=== PATIENT | male | born 1950 | race Caucasian/White ===

== ENCOUNTER 2019-02-01 15:34 | Inpatient (IN) | payer MEDICARE ==
[~2019-02-01] VITALS: Ht 160 cm; Wt 73.6 kg
[2019-02-01 16:15] LABS: BASO # 0.1 x10^3/uL (0.0-0.2); BASO % 1 % (0-3); EOS # 0.1 x10^3/uL (0.0-0.7); EOS % 1 % (0-3); HEMATOCRIT 46.1 % (39.0-53.0); LYMPH # 1.6 x10^3/uL (1.0-4.8); LYMPH % 22 % (24-48); MEAN CORPUSCULAR HEMOGLOBIN 29 pg (25-35); MEAN CORPUSCULAR HGB CONC 33 g/dL (31-37); MEAN CORPUSCULAR VOLUME 88 fL (79-100); MONO # 0.8 x10^3/uL (0.0-1.1); MONO % 11 % (0-9); NEUT # 4.7 x10^3uL (1.8-7.7); NEUT % 65 % (31-73); PLATELET COUNT 304 x10^3/uL (140-400); RED BLOOD COUNT 5.22 x10^6/uL (4.30-5.70); RED CELL DISTRIBUTION WIDTH 16.1 % (11.5-14.5); WHITE BLOOD COUNT 7.2 x10^3/uL (4.0-11.0)
[2019-02-01 16:39] LABS: ACETAMIN 2.2 mcg/mL (10-30); SALIC 1.6 mg/dL (2.8-20.0)
[2019-02-01 16:41] LABS: ALBUMIN 2.9 g/dL (3.4-5.0); ALBUMIN/GLOBULIN RATIO 0.6 (1.0-1.7); ALK PHOS 103 U/L (46-116); ALT (SGPT) 23 U/L (16-63); ANION GAP 10 (6-14); AST (SGOT) 31 U/L (15-37); BLOOD UREA NITROGEN 21 mg/dL (8-26); BUN/CREATININE RATIO 19 (6-20); CALCIUM 8.9 mg/dL (8.5-10.1); CARBON DIOXIDE 26 mmol/L (21-32); CHLORIDE 103 mmol/L (98-107); CREATININE 1.1 mg/dL (0.7-1.3); GLUCOSE 94 mg/dL (70-99); SODIUM 139 mmol/L (136-145); TOTAL BILIRUBIN 0.2 mg/dL (0.2-1.0); TOTAL PROTEIN 7.4 g/dL (6.4-8.2)
[2019-02-01 16:42] LABS: VAL ACID 45 mcg/mL (50-100)
--- NOTE | 2019-02-01 17:11 | EKG ---
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
--- NOTE | 2019-02-01 17:38 | PHYS DOC ---
Past History Past Medical History: COPD, Dementia Past Medical History Limited due to dementia Past Surgical History Limited due to dementia Social History Limited due to dementia Adult General Chief Complaint Chief Complaint: MEDICAL CLEARANCE HPI HPI 69-year-old male with past medical history of dementia presents from assisted for medical clearance for admission to [facility] behavioral unit. Patient is extremely poor historian given his dementia. Patient has apparently been combative. Review of Systems Review of Systems Review of systems limited secondary to patient's dementia Physical Exam Physical Exam Constitutional: Well developed, well nourished, agitated, non-toxic appearance HENT: Normocephalic, atraumatic, oropharynx moist Eyes: PERRL, EOMI, conjunctiva normal, no discharge Neck: Normal range of motion, no tenderness, supple Cardiovascular: Heart rate normal, regular rhythm Lungs & Thorax: Bilateral breath sounds clear to auscultation, no wheezing Abdomen: Soft, no tenderness Skin: Warm, dry, no erythema, no rash Back: No tenderness, no CVA tenderness Extremities: No tenderness, ROM intact, no edema Neurologic: Alert, agitated, normal motor function, normal sensory function, no focal deficits noted Psychologic: Affect agitated, judgement abnormal Current Patient Data Lab Results Laboratory Tests Test 02/01/19 15:58 White Blood Count 7.2 x10^3/uL (4.0-11.0) Red Blood Count 5.22 x10^6/uL (4.30-5.70) Hemoglobin 15.0 g/dL (13.0-17.5) Hematocrit 46.1 % (39.0-53.0) Mean Corpuscular Volume 88 fL (79-100) Mean Corpuscular Hemoglobin 29 pg (25-35) Mean Corpuscular Hemoglobin Concent 33 g/dL (31-37) Red Cell Distribution Width 16.1 % (11.5-14.5) H Platelet Count 304 x10^3/uL (140-400) Neutrophils (%) (Auto) 65 % (31-73) Lymphocytes (%) (Auto) 22 % (24-48) L Monocytes (%) (Auto) 11 % (0-9) H Eosinophils (%) (Auto) 1 % (0-3) Basophils (%) (Auto) 1 % (0-3) Neutrophils # (Auto) 4.7 x10^3uL (1.8-7.7) Lymphocytes # (Auto) 1.6 x10^3/uL (1.0-4.8) Monocytes # (Auto) 0.8 x10^3/uL (0.0-1.1) Eosinophils # (Auto) 0.1 x10^3/uL (0.0-0.7) Basophils # (Auto) 0.1 x10^3/uL (0.0-0.2) Prothrombin Time 10.3 SEC (9.4-11.4) Prothrombin Time INR 1.0 (0.9-1.1) Activated Partial Thromboplast Time 28 SEC (23-33) Sodium Level 139 mmol/L (136-145) Potassium Level 4.0 mmol/L (3.5-5.1) Chloride Level 103 mmol/L (98-107) Carbon Dioxide Level 26 mmol/L (21-32) Anion Gap 10 (6-14) Blood Urea Nitrogen 21 mg/dL (8-26) Creatinine 1.1 mg/dL (0.7-1.3) Estimated GFR (Cockcroft-Gault) 66.0 BUN/Creatinine Ratio 19 (6-20) Glucose Level 94 mg/dL (70-99) Calcium Level 8.9 mg/dL (8.5-10.1) Magnesium Level 2.0 mg/dL (1.8-2.4) Total Bilirubin 0.2 mg/dL (0.2-1.0) Aspartate Amino Transferase (AST) 31 U/L (15-37) Alanine Aminotransferase (ALT) 23 U/L (16-63) Alkaline Phosphatase 103 U/L (46-116) Creatine Kinase 459 U/L (39-308) H Creatine Kinase MB (Mass) 3.1 ng/mL (0.0-3.6) Creatine Kinase MB Relative Index 0.7 % (0-4) Troponin I Quantitative < 0.017 ng/mL (0-0.055) Total Protein 7.4 g/dL (6.4-8.2) Albumin 2.9 g/dL (3.4-5.0) L Albumin/Globulin Ratio 0.6 (1.0-1.7) L Salicylates Level 1.6 mg/dL (2.8-20.0) L Salicylate Last Dose Date Unk Salicylate Last Dose Time Unk Acetaminophen Level 2.2 mcg/mL (10-30) L Acetaminophen Last Dose Date Unk Acetaminophen Last Dose Time Unk Valproic Acid Level 45 mcg/mL (50-100) L Valproic Acid Last Dose Date 02/01/19 Valproic Acid Last Dose Time 0900 EKG EKG @1554 Sinus tachycardia at 103bpm, NO ST elevation, nonspecific t wave inversion III and aVF, QRS 74ms, QT/QTc 324/426ms Radiology/Procedures Radiology/Procedures [] Course & Med Decision Making Course & Med Decision Making Pertinent Lab studies reviewed. (See chart for details) Patient with past medical history of dementia who has been more combative and agitated recently presents from assisted for medical clearance for [facility] unit. Patient without focal abnormality on physical exam. Labs obtained and posted to chart. UA ordered but not obtained here, however patient did present with paperwork from assisted that noted normal urinalysis that was obtained this morning. Patient medically cleared for admission to [facility] behavioral unit. Continued plan for admission for further evaluation and treatment. Dragon Disclaimer Dragon Disclaimer This electronic medical record was generated, in whole or in part, using a voice recognition dictation system. Departure Departure: Impression: Primary Impression: Medical clearance for psychiatric admission Additional Impression: Dementia Disposition: 65 XFER TO PSYCH HOSP/UNIT ([facility]) Condition: STABLE Referrals: GER ANDREWS MD (PCP) Problem Qualifiers Additional Impression: Dementia Dementia type: unspecified type Dementia behavioral disturbance: with behavioral disturbance Qualified Codes: F03.91 - Unspecified dementia with behavioral disturbance NERI SINCLAIR DO Feb 01, 2019 17:38
[2019-02-01] MEDS ORDERED: ACET160O49 PO (18:05)
[2019-02-01] MEDS ORDERED: TRAM-48 PO (18:05)
[2019-02-01] MEDS ORDERED: FLUT1DIS3 IH (18:05)
[2019-02-01] MEDS ORDERED: BUPR1PAT8 TP (18:05)
[2019-02-01] MEDS ORDERED: LORA2ORA8 PO (18:05)
[2019-02-01] MEDS ORDERED: DIVA500T2 PO (18:05)
[2019-02-01 18:28] VITALS: BP 149/79
[2019-02-01] MEDS ORDERED: MAG HYDROX/AL HYDROX/SIMETH 30 ML ORAL.SUSP PO PRN (18:30)
[2019-02-01] MEDS ORDERED: METHYL SALICYLATE/MENTHOL TOPICAL OINTMENT 57GM TUBE. TP PRN (18:30)
[2019-02-01] MEDS ORDERED: MAGNESIUM HYDROXIDE 2,400 MG/30 ML ORAL.SUSP. PO PRN (18:30)
--- NOTE | 2019-02-01 18:32 | NUR ---
Admission Note with Justification for Admission to [facility] Patient admitted to [facility] for protective oversight for emergency stabilization of acute psychiatric crisis. Pt admitted from: Hospital ER Mode of arrival: EMS Accompanied By: EMS Precipitating behaviors that initiated intake and admission: COMBATIVE WITH STAFF, PEERS, FAMILY, RESISTIVE TO MEDICATION, INCREASED AGITATION Description of failure of out patient attempts at stabilization in previous setting list behavior and medication trials: Behaviors and assessment findings upon admission: PATIENT COMBATIVE AT TIME OF ASSESSMENT UNABLE TO ASSESS HEART LUNGS AND BOWEL SOUNDS AT THIS TIME Plan: Admit for protective oversight for adjustment and stabilization of medications, behaviors and mood. Intense treatment regimen including groups, medication adjustments, therapy, consistent regimen for ADL's, self care, and sleep hygiene. Daily monitoring by Inpatient staff, Psychiatry, and Medical Physician.
[2019-02-01] MEDS ORDERED: ACETAMINOPHEN 650 MG/20.3 ML SOLUTION. PO PRN (19:00)
[2019-02-01] MEDS: ALBUTEROL SULFATE 2.5 MG/3 ML NEBU. NEB SCH (20:00)
[2019-02-01] MEDS: BUDESONIDE 0.5 MG/2 ML NEBU NEB SCH (20:00)
--- NOTE | 2019-02-01 20:40 | NUR ---
Was not informed of the patient's orders.
[2019-02-01] MEDS ORDERED: NON FORMULARY ITEM (Fluticasone/Salmeterol (Advair 250-50 Diskus) 1 PUFF) IH SCH (21:00)
[2019-02-01] MEDS: LORazepam INTENSOL 2 MG/ML BOTTLE PO PRN (21:11)
[2019-02-01] MEDS: traMADol 50 MG TABLET PO PRN (21:11)
[2019-02-01] MEDS: DIVALPROEX 125 MG CAP.SPRINK PO SCH (21:11)
[2019-02-02 06:03] VITALS: BP 140/83
[2019-02-02] MEDS ORDERED: FLU VAX QS 2019-20 (36MOS+)/PF 0.5 ML SYRINGE. VAX IM ONE (09:00)
--- NOTE | 2019-02-02 10:00 | NUR ---
Patient received yearly flu vaccine in right deltoid. Patient was resistive. No adverse reactions noted at this time.
[2019-02-02] MEDS: ALBUTEROL SULFATE 2.5 MG/3 ML NEBU. NEB SCH ×3 (10:12→23:53)
[2019-02-02] MEDS: BUDESONIDE 0.5 MG/2 ML NEBU NEB SCH ×2 (10:12→23:53)
[2019-02-02] MEDS: DIVALPROEX 125 MG CAP.SPRINK PO SCH ×2 (10:23→20:49)
[2019-02-02] MEDS: LORazepam INTENSOL 2 MG/ML BOTTLE PO PRN (10:26)
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
--- NOTE | 2019-02-02 11:02 | RAD ---
CT HEAD WO CONTRAST Date: 02/02/2019 5:00 AM Clinical Indication: Comparison: None. Technique: 5 mm axial tomographic images were obtained of the head without contrast. These were viewed on brain and bone windows. One or more of the following dose reduction techniques were utilized: Automated exposure control (AEC), Adjustment of mA and/or kV according to patient size, Use of iterative reconstruction technique such as ASiR, CT scan done according to ALARA and image gently/image wisely Findings: Moderate generalized cerebral and cerebellar volume loss. Moderate nonspecific periventricular hypoattenuation, most commonly seen with chronic small vessel ischemic disease. Calcified atherosclerosis of the bilateral cavernous and paraclinoid internal carotid arteries and intracranial vertebral arteries. No intra- or extra-axial mass or fluid collection. No acute hemorrhage. The ventricles are normal in size, shape, and morphology. The francois-white matter junction is normal. The subarachnoid cisterns are patent. The visualized paranasal sinuses are normal. The visualized portions of the orbits and globes are normal. The mastoid air cells are clear. The racing secretary topogram shows no lytic lesion or fracture. Impression: No acute intracranial process. Moderate cerebral volume loss. Moderate chronic small vessel ischemic disease. Electronically signed by: Larry Scanlon MD (02/02/2019 10:59 AM) [facility]
--- NOTE | 2019-02-02 11:55 | NUR ---
Patient restless, kicking at staff when approached. Resistive with morning medications. Chair alarm applied related to patients continued attempts to get out of Broda Chair.
[2019-02-02 13:19] LABS: THYROID STIM HORMONE (TSH) 66.561 uIU/mL (0.358-3.740)
--- NOTE | 2019-02-02 13:35 | NUR ---
Nursing note: Pt in day room for morning meds and assessment. Pt was compliant with taking meds crushed in pudding. He was also cooperative with his assessment. He is agitated, but not showing any signs of aggression at this time.
[2019-02-02 16:15] VITALS: BP 134/73
[2019-02-02] MEDS ORDERED: CHOLECALCIFEROL (VITAMIN D3) 50,000 UNIT CAPSULE PO SCH (17:00)
[2019-02-02 18:10] LABS: THYROXINE 4.4 ug/dL (4.5-12.0)
--- NOTE | 2019-02-02 18:29 | NUR ---
Patient TSH 66.561, T3 4.4 and T4 144. Spoke with Dr. Lebron on the phone, will repeat labs in the morning to recheck TSH.
[2019-02-02] MEDS: hydrOXYzine HCL 10 MG TABLET PO PRN (20:48)
[2019-02-02] MEDS: CHOLECALCIFEROL (VITAMIN D3) 50,000 UNIT CAPSULE PO SCH (20:48)
[2019-02-03 00:10] LABS: HEMOGLOBIN A1C 5.8 % (4.8-5.6)
--- NOTE | 2019-02-03 00:10 | NUR ---
Pt restless in his chair in the dayroom, tearing apart a tissue container. Pt compliant with medication crushed in chocolate pudding. Pt was resistive when this nurse attempted to assess pt, push the stethoscope away. Pt is was aggressive when staff members while they assisted patient to bed, attempting to hit and scratch. Pt settle after staff got pt laying down. Bed alarm in place.
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
[2019-02-03 05:56] VITALS: BP 130/84
[2019-02-03] MEDS: ALBUTEROL SULFATE 2.5 MG/3 ML NEBU. NEB SCH ×4 (06:45→20:00)
[2019-02-03] MEDS: DIVALPROEX 125 MG CAP.SPRINK PO SCH ×2 (08:16→19:56)
--- NOTE | 2019-02-03 10:18 | NUR ---
Nursing note: Pt was in dining room for medication administration and assessment. He was compliant with taking his meds crushed and mixed with part of his breakfast. No aggression noted at this time.
[2019-02-03] MEDS: BUDESONIDE 0.5 MG/2 ML NEBU NEB SCH ×2 (10:51→20:00)
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
--- NOTE | 2019-02-03 12:41 | NUR ---
WEEKLY ACTIVITY THERAPY NOTE Date of Admission: 02/01/2019 Date of AT Assessment: TBD Goal aimed: TBD Initial goal: TBD Weekly progress towards goal: NA Group participation level: Zero Weekly highlights: arrived to unit Behaviors observed: restless in Broda wheelchair Plan: meet/assess Pt. Beneficial adaptations: potentially individual sensory stimulation activities
[2019-02-03 13:49] LABS: FREE T4 0.59 ng/dL (0.76-1.46); THYROID STIM HORMONE (TSH) 51.855 uIU/mL (0.358-3.740)
[2019-02-03 16:11] VITALS: BP 131/87
[2019-02-03 17:07] LABS: THYROXINE 4.6 ug/dL (4.5-12.0)
--- NOTE | 2019-02-03 18:52 | NUR ---
Dr Lebron is aware of patients elevated TSH. He has ordered repeat labs for 02/10.
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
[2019-02-04] MEDS: LEVOTHYROXINE 50 MCG TABLET PO SCH (06:04)
[2019-02-04] MEDS: BUDESONIDE 0.5 MG/2 ML NEBU NEB SCH (06:21)
[2019-02-04] MEDS: ALBUTEROL SULFATE 2.5 MG/3 ML NEBU. NEB SCH ×3 (06:22→16:00)
[2019-02-04 06:25] VITALS: BP 123/74
[2019-02-04] MEDS: DIVALPROEX 125 MG CAP.SPRINK PO SCH ×2 (08:33→19:51)
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
[2019-02-04 16:16] VITALS: BP 117/85
--- NOTE | 2019-02-04 17:36 | NUR ---
Patient was compliant with medications given crushed in a bite of pudding. He had difficulty eating food but drinks boost, milk and ate some iced cream. Patients daughter called, she stated that this is normal for patient. He was calm today and is disorganized.
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
[2019-02-05] MEDS: BUDESONIDE 0.5 MG/2 ML NEBU NEB SCH ×3 (01:03→21:04)
[2019-02-05] MEDS: ALBUTEROL SULFATE 2.5 MG/3 ML NEBU. NEB SCH ×5 (01:03→21:04)
[2019-02-05] MEDS: LEVOTHYROXINE 50 MCG TABLET PO SCH (05:44)
[2019-02-05 06:00] VITALS: BP 151/84
--- NOTE | 2019-02-05 06:20 | PN ---
DATE: 02/04/2019 SUBJECTIVE: The patient was seen today, met with the staff, chart reviewed. The patient continues to have problems with behaviors, hitting staff, spitting his food, refusing to eat, also restless, difficult to manage on the unit. The patient also tends to become aggressive, punching the staff and also resistive to care. OBSERVATION: VITAL SIGNS: Temperature 97.3, blood pressure 123/74, pulse 62, respirations 20, O2 sat 95%. GENERAL: Slept about 6 hours last night. The patient is not having any major physical problems. LABORATORY DATA: The patient's lab reviewed. The patient's TSH repeat still high in 60s. MEDICATIONS: Include olanzapine 5 mg daily and 2.5 mg q. 2 hours p.r.n., Depakote 500 mg b.i.d., tramadol 50 mg q. 6 hours p.r.n. ASSESSMENT: 1. Dementia, most likely Alzheimer's versus Lewy body with behavior problems. 2. Generalized anxiety disorder. 3. Impulse control disorder, unspecified. PLAN: To continue with the treatment. GASTON CAMACHO MD DR: DIXIE/kelby JOB#: [id number] / [id number]
[2019-02-05] MEDS: DIVALPROEX 125 MG CAP.SPRINK PO SCH ×2 (09:10→20:01)
--- NOTE | 2019-02-05 10:24 | NUR ---
Activity Therapy Assessment Completed based on observation and notes as Pt. is unable to respond verbally to assessment questions. Pt. uses a Broda chair and sleeps often during the day. When awake, Pt. is impulsive, often trying to stand up from his chair and grabbing at objects. Pt. is combative with anyone who stands near him, grabbing, punching and kicking most often. Pt. is oriented only to himself and does not communicate verbally. Pt. is often compliant with his medications but becomes combative shortly thereafter. Pt. has not engaged in any group activities since admission. Initial goal aimed to increase sensory stimulation: Pt. will engage in one individual Activity Therapy session before discharge.
--- NOTE | 2019-02-05 14:18 | NUR ---
Nursing note: Pt was in day room for meds. He was compliant with taking them crushed in pudding. Assessment was performed in the dining room right before lunch, which he was calm and pleasant for. He had a fish water sensory item in his hands that kept him occupied during his assessment. Pt is currently in the day room. Pt has been less combative today. Will continue to monitor.
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
[2019-02-05 16:59] VITALS: BP 148/75
--- NOTE | 2019-02-05 20:38 | NUR ---
Nursing note: Assumed care of pt in the day room. He was sleeping but was compliant with meds crushed. No agitation at this time. No s/s or c/o pain.
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
[2019-02-06 05:16] VITALS: BP 150/83
[2019-02-06] MEDS: ALBUTEROL SULFATE 2.5 MG/3 ML NEBU. NEB SCH ×4 (05:42→19:54)
[2019-02-06] MEDS: LEVOTHYROXINE 50 MCG TABLET PO SCH (05:47)
[2019-02-06] MEDS: DIVALPROEX 125 MG CAP.SPRINK PO SCH ×2 (08:02→19:42)
--- NOTE | 2019-02-06 09:20 | NUR ---
Patient was sitting in Broda chair resting when first rounding, was waiting to have breakfast. Took medications crushed in chocolate pudding, allowed for morning assessment. Patient has been less physical this morning, more compliant with cares. No agitation noted, will continue to monitor.
[2019-02-06] MEDS: BUDESONIDE 0.5 MG/2 ML NEBU NEB SCH ×2 (10:43→19:54)
[2019-02-06 15:46] VITALS: BP 142/82
--- NOTE | 2019-02-06 20:31 | NUR ---
Nursing note: Assumed care of pt in the day room. He was awake and sitting quietly. He was compliant with meds crushed in food. No s/s or c/o pain. Alert to self only. no agitation noted, no delusions or hallucinations evident.
[2019-02-07] MEDS: ALBUTEROL SULFATE 2.5 MG/3 ML NEBU. NEB SCH ×3 (05:28→15:54)
[2019-02-07] MEDS: LEVOTHYROXINE 50 MCG TABLET PO SCH (05:30)
[2019-02-07 07:15] VITALS: BP 126/67
[2019-02-07] MEDS: DIVALPROEX 125 MG CAP.SPRINK PO SCH ×2 (08:17→19:51)
[2019-02-07] MEDS: BUDESONIDE 0.5 MG/2 ML NEBU NEB SCH (11:40)
[2019-02-07 15:42] VITALS: BP 129/69
--- NOTE | 2019-02-07 16:49 | PN ---
DATE: 02/07/2019 SUBJECTIVE: The patient was seen today, met with the staff, chart reviewed. The patient continues to have problems, increased agitation, being combative with the staff and also refusing medications at times. OBSERVATION: VITAL SIGNS: Temperature 97.4, blood pressure 126/67, pulse 65, respiration 18, and O2 sat 99%. GENERAL: Slept about 7 hours the last night. The patient's appetite is fair. CURRENT MEDICATIONS: Include olanzapine 5 mg daily and 2.5 mg q. 2 hours p.r.n., Depakote 500 mg b.i.d., and tramadol 50 mg q. 6 hours p.r.n. ASSESSMENT: 1. Dementia, most likely Alzheimer's versus Lewy body disease with behavior problems. 2. Generalized anxiety disorder. 3. Impulse control disorder, unspecified. PLAN: To continue with the treatment. GASTON CAMACHO MD DR: DIXIE/kelby JOB#: [id number] / [id number]
--- NOTE | 2019-02-07 17:55 | NUR ---
Pt up in broda for meals. is restless. redirectible with some difficulty. Compliant with meds.
[2019-02-08] MEDS: BUDESONIDE 0.5 MG/2 ML NEBU NEB SCH ×2 (01:15→10:42)
[2019-02-08] MEDS: ALBUTEROL SULFATE 2.5 MG/3 ML NEBU. NEB SCH ×4 (01:15→16:52)
--- NOTE | 2019-02-08 01:23 | NUR ---
Nursing Note The patient was very disorganized and restless during his assessment and medication pass. The patient took his medication in chocolate pudding. The patient is currently sleeping in his room.
[2019-02-08 06:15] VITALS: BP 143/75
[2019-02-08] MEDS: LEVOTHYROXINE 50 MCG TABLET PO SCH (08:12)
[2019-02-08] MEDS: DIVALPROEX 125 MG CAP.SPRINK PO SCH ×2 (08:12→19:51)
[2019-02-08] MEDS: NON FORMULARY ITEM (Buprenorphine (Butrans) 1 PATCH) TP SCH (09:00)
--- NOTE | 2019-02-08 13:50 | NUR ---
Patient in the dining room for medications and assessments. He is cooperative and compliant. Disorganized. He took his medications crushed in chocolate pudding. Participated with activities, in a pleasant mood. No agitation, no s/s of pain or discomfort.
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
[2019-02-08 16:21] VITALS: BP 102/56
--- NOTE | 2019-02-08 21:52 | PDOC ---
Exam Note: Ramiro Note: Please also refer to the separate dictated note~for this date of service dictated separately.~Patient seen individually. Discussed the patient with Nursing staff reviewed the chart.~Reviewed interim history and current functioning. Reviewed vital signs,~Labs/ Radiology~and current medications noted below. Continue current treatment with the changes noted in the dictated addendum note Assessment: Vital Signs/I&O: Vital Signs Date Time Temp Pulse Resp B/P (MAP) Pulse Ox O2 Delivery O2 Flow Rate FiO2 02/08/19 20:35 95 Room Air 02/08/19 16:21 98.2 64 16 102/56 (71) I & O 02/07/19 02/07/19 02/08/19 14:59 22:59 06:59 Intake Total 960 ml 480 ml 100 ml Balance 960 ml 480 ml 100 ml Current Medications: I have reviewed the current psychotropics carefully including drug interactions. Risk benefit ratio favors no change other than as noted in my dictated progress note. Diagnosis: Problems: (1) Medical clearance for psychiatric admission (2) Dementia (3) Alzheimer's dementia (4) Malnutrition PASCUAL RUELAS MD Feb 08, 2019 21:52
--- NOTE | 2019-02-08 23:58 | NUR ---
Nursing Note The patient was located in the day room for his medication and assessment. The patient was compliant with medication in chocolate pudding. The patient is currently sleeping in his room.
[2019-02-09] MEDS: ALBUTEROL SULFATE 2.5 MG/3 ML NEBU. NEB SCH ×5 (00:15→20:00)
[2019-02-09] MEDS: BUDESONIDE 0.5 MG/2 ML NEBU NEB SCH ×3 (00:16→20:00)
[2019-02-09] MEDS: LEVOTHYROXINE 50 MCG TABLET PO SCH ×2 (06:00→06:20)
[2019-02-09 06:31] VITALS: BP 143/76
[2019-02-09] MEDS: DIVALPROEX 125 MG CAP.SPRINK PO SCH ×2 (08:31→19:45)
[2019-02-09] MEDS: CHOLECALCIFEROL (VITAMIN D3) 50,000 UNIT CAPSULE PO SCH (08:31)
[2019-02-09] MEDS: hydrOXYzine HCL 10 MG TABLET PO PRN (13:29)
[2019-02-09 15:57] VITALS: BP 125/70
--- NOTE | 2019-02-09 20:47 | NUR ---
Nursing note: Assumed care of pt in the day room. He was watching the game on tv and also getting his breathing treatment. He was compliant with meds in food but my attempt to engage him in conversation was ineffective. No c/o or s/s of pain, no agitation, hallucinations, or delusions evident at this time.
--- NOTE | 2019-02-09 21:53 | PDOC ---
Exam Note: Ramiro Note: Please also refer to the separate dictated note~for this date of service dictated separately.~Patient seen individually. Discussed the patient with Nursing staff reviewed the chart.~Reviewed interim history and current functioning. Reviewed vital signs,~Labs/ Radiology~and current medications noted below. Continue current treatment with the changes noted in the dictated addendum note Assessment: Vital Signs/I&O: Vital Signs Date Time Temp Pulse Resp B/P (MAP) Pulse Ox O2 Delivery O2 Flow Rate FiO2 02/09/19 20:15 94 Room Air 02/09/19 15:57 97.0 60 20 125/70 (88) I & O 02/08/19 02/08/19 02/09/19 15:00 23:00 07:00 Intake Total 1080 ml 240 ml 120 ml Balance 1080 ml 240 ml 120 ml Current Medications: I have reviewed the current psychotropics carefully including drug interactions. Risk benefit ratio favors no change other than as noted in my dictated progress note. Diagnosis: Problems: (1) Lewy body dementia with behavioral disturbance (2) Anxiety disorder (3) Impulse control disorder PASCUAL RUELAS MD Feb 09, 2019 21:53
--- NOTE | 2019-02-10 04:22 | PN ---
DATE: 02/08/2019 PSYCHIATRIC PROGRESS NOTE This late entry 02/08/2019 covers the elements not covered in my initial note. SUBJECTIVE: I met with the patient evening of 02/08/2019. Reviewed information from Dr. Glass, who covered for me over the past 1 week. The patient slept 7 hours previous night. He is wearing a red shirt, anxious, restless. REVIEW OF SYSTEMS: Ambulation impaired, in wheelchair. No CV, , pulmonary, eye system symptoms on review. MENTAL STATUS EXAM: Oriented to himself. Insight, judgment, recent and remote memory, attention, concentration, fund of knowledge poor, consistent with his diagnosis. IMPRESSION: Major neurocognitive disorder, Alzheimer, vascular with delusion, depression, behavioral disturbance; anxiety disorder, unspecified; impulse control disorder, unspecified. Hypothyroidism, currently uncontrolled, deferred to Dr. Lebron. PLAN: Continue current psychotropics. Depakote Sprinkles 500 b.i.d., Zyprexa p.r.n. Valproic acid level subtherapeutic at 45. May need to increase the Depakote, but I would like to see him medically stabilized with the thyroid status and then make further changes in his psychotropics. PASCUAL RUELAS MD DR: ENID/kelby JOB#: [id number] / [id number]
[2019-02-10] MEDS: ALBUTEROL SULFATE 2.5 MG/3 ML NEBU. NEB SCH ×4 (05:18→21:05)
[2019-02-10 05:41] VITALS: BP 115/70
[2019-02-10] MEDS: LEVOTHYROXINE 50 MCG TABLET PO SCH (05:52)
[2019-02-10] MEDS: DIVALPROEX 125 MG CAP.SPRINK PO SCH ×2 (09:17→20:02)
[2019-02-10 10:06] LABS: BASO # 0.1 x10^3/uL (0.0-0.2); BASO % 1 % (0-3); EOS # 0.1 x10^3/uL (0.0-0.7); EOS % 2 % (0-3); HEMATOCRIT 43.7 % (39.0-53.0); HEMOGLOBIN 14.2 g/dL (13.0-17.5); LYMPH # 0.9 x10^3/uL (1.0-4.8); LYMPH % 11 % (24-48); MEAN CORPUSCULAR HEMOGLOBIN 29 pg (25-35); MEAN CORPUSCULAR HGB CONC 33 g/dL (31-37); MEAN CORPUSCULAR VOLUME 90 fL (79-100); MONO # 0.8 x10^3/uL (0.0-1.1); MONO % 10 % (0-9); NEUT # 6.6 x10^3uL (1.8-7.7); NEUT % 77 % (31-73); PLATELET COUNT 222 x10^3/uL (140-400); RED BLOOD COUNT 4.86 x10^6/uL (4.30-5.70); RED CELL DISTRIBUTION WIDTH 17.3 % (11.5-14.5); WHITE BLOOD COUNT 8.6 x10^3/uL (4.0-11.0)
[2019-02-10] MEDS: BUDESONIDE 0.5 MG/2 ML NEBU NEB SCH ×2 (10:16→21:05)
[2019-02-10 10:26] LABS: ALBUMIN 2.6 g/dL (3.4-5.0); ALBUMIN/GLOBULIN RATIO 0.6 (1.0-1.7); CALCIUM 9.2 mg/dL (8.5-10.1); GFR 73.7; POTASSIUM 4.3 mmol/L (3.5-5.1); TOTAL BILIRUBIN 0.3 mg/dL (0.2-1.0)
--- NOTE | 2019-02-10 11:19 | NUR ---
Nursing note: Pt was in the day room this morning for his meds and assessment. He was compliant with taking his meds crushed in a bite of pudding. Pt was calm throughout his assessment. He is showing no signs of pain, agitation, or aggression at this time. He is currently in the day room watching the news.
[2019-02-10 17:00] VITALS: BP 152/66
[2019-02-10 18:07] LABS: THYROXINE 5.7 ug/dL (4.5-12.0)
--- NOTE | 2019-02-10 21:46 | PDOC ---
Exam Note: Ramiro Note: Please also refer to the separate dictated note~for this date of service dictated separately.~Patient seen individually. Discussed the patient with Nursing staff reviewed the chart.~Reviewed interim history and current functioning. Reviewed vital signs,~Labs/ Radiology~and current medications noted below. Continue current treatment with the changes noted in the dictated addendum note Assessment: Vital Signs/I&O: Vital Signs Date Time Temp Pulse Resp B/P (MAP) Pulse Ox O2 Delivery O2 Flow Rate FiO2 02/10/19 21:11 96 Room Air 02/10/19 17:00 97.6 81 16 152/66 (94) I & O 02/09/19 02/09/19 02/10/19 15:00 23:00 07:00 Intake Total 840 ml 340 ml Balance 840 ml 340 ml Labs: Laboratory Tests Test 02/10/19 07:34 02/10/19 09:56 Free Thyroxine 0.70 ng/dL (0.76-1.46) L Thyroxine (T4) 5.7 ug/dL (4.5-12.0) Total Triiodothyronine (TT3) 124 ng/dL (71-180) White Blood Count 8.6 x10^3/uL (4.0-11.0) Red Blood Count 4.86 x10^6/uL (4.30-5.70) Hemoglobin 14.2 g/dL (13.0-17.5) Hematocrit 43.7 % (39.0-53.0) Mean Corpuscular Volume 90 fL (79-100) Mean Corpuscular Hemoglobin 29 pg (25-35) Mean Corpuscular Hemoglobin Concent 33 g/dL (31-37) Red Cell Distribution Width 17.3 % (11.5-14.5) H Platelet Count 222 x10^3/uL (140-400) Neutrophils (%) (Auto) 77 % (31-73) H Lymphocytes (%) (Auto) 11 % (24-48) L Monocytes (%) (Auto) 10 % (0-9) H Eosinophils (%) (Auto) 2 % (0-3) Basophils (%) (Auto) 1 % (0-3) Neutrophils # (Auto) 6.6 x10^3uL (1.8-7.7) Lymphocytes # (Auto) 0.9 x10^3/uL (1.0-4.8) L Monocytes # (Auto) 0.8 x10^3/uL (0.0-1.1) Eosinophils # (Auto) 0.1 x10^3/uL (0.0-0.7) Basophils # (Auto) 0.1 x10^3/uL (0.0-0.2) Sodium Level 142 mmol/L (136-145) Potassium Level 4.3 mmol/L (3.5-5.1) Chloride Level 106 mmol/L (98-107) Carbon Dioxide Level 28 mmol/L (21-32) Anion Gap 8 (6-14) Blood Urea Nitrogen 25 mg/dL (8-26) Creatinine 1.0 mg/dL (0.7-1.3) Estimated GFR (Cockcroft-Gault) 73.7 BUN/Creatinine Ratio 25 (6-20) H Glucose Level 122 mg/dL (70-99) H Calcium Level 9.2 mg/dL (8.5-10.1) Total Bilirubin 0.3 mg/dL (0.2-1.0) Aspartate Amino Transferase (AST) 22 U/L (15-37) Alanine Aminotransferase (ALT) 23 U/L (16-63) Alkaline Phosphatase 75 U/L (46-116) Total Protein 7.0 g/dL (6.4-8.2) Albumin 2.6 g/dL (3.4-5.0) L Albumin/Globulin Ratio 0.6 (1.0-1.7) L Current Medications: I have reviewed the current psychotropics carefully including drug interactions. Risk benefit ratio favors no change other than as noted in my dictated progress note. Diagnosis: Problems: (1) Anxiety disorder (2) Impulse control disorder (3) Lewy body dementia with behavioral disturbance PASCUAL RUELAS MD Feb 10, 2019 21:46
--- NOTE | 2019-02-10 22:25 | NUR ---
Nursing note: Assumed care of pt in the day room. He was siting quietly and occasionally dozing. When I attempted to give him his meds he became combative, swinging at myself and the RABBLE FURNACE TENDER. He was yelling profanities. Med administered in food. Not positive pt is alert to name.
--- NOTE | 2019-02-10 23:56 | PN ---
DATE: PSYCHIATRIC PROGRESS NOTE This late entry 02/09/2019 covers elements not covered in my initial note. SUBJECTIVE: I met with the patient in the evening. The patient slept 5-1/4 hours previous night. He has been crying all day per nursing report, received Atarax and Zyprexa Zydis to help with this. REVIEW OF SYSTEMS: No CV, , pulmonary, eye, ENT system symptoms on review. Gait unsteady. Reliability poor. MENTAL STATUS EXAM: Oriented to himself. Insight, judgment, recent and remote memory, attention, concentration, fund of knowledge poor, consistent with his diagnosis mentioned in my initial note. PLAN: Start Zoloft 25 mg a day for 2 days, then 50 mg a day. Continue rest, unchanged for now. MAN Subhash RUELAS MD DR: ENID/kelby JOB#: [id number] / [id number]
[2019-02-11] MEDS: ALBUTEROL SULFATE 2.5 MG/3 ML NEBU. NEB SCH ×4 (05:04→20:18)
[2019-02-11 06:23] VITALS: BP 116/73
[2019-02-11 06:25] VITALS: BP 110/53
[2019-02-11] MEDS: LEVOTHYROXINE 50 MCG TABLET PO SCH (06:42)
[2019-02-11] MEDS: DIVALPROEX 125 MG CAP.SPRINK PO SCH ×2 (08:24→20:02)
[2019-02-11] MEDS: BUDESONIDE 0.5 MG/2 ML NEBU NEB SCH ×2 (10:05→20:18)
--- NOTE | 2019-02-11 10:49 | NUR ---
WEEKLY ACTIVITY THERAPY NOTE Date of Admission: 02/01/2019 Date of AT Assessment: 02/05/2019 Goal aimed: to increase sensory stimulation Initial goal: Pt. will engage in one individual Activity Therapy session before discharge. Weekly progress towards goal: achieved, 04/21 Group participation level: zero groups, full during 1:1 Weekly highlights: working with puzzle and lock box for sensory stimulation Behaviors observed: sleeping often, manipulating sensory tools, decreased restlessness as the week has gone on Plan: repeat goal Beneficial adaptations: supervision with sturdy sensory stimulation activities
--- NOTE | 2019-02-11 10:49 | NUR ---
WEEKLY NOTE: Pt dtr Mylene participated in tx team via telephone. Pt is eating 75% of meals and sleeping on average 7 hours. Pt is confused and does have some combative behaviors as they were attempting to give pt medications and provide cares. Pt thyroid function is elevated. At this time pt is on Depakote 500mg BID and had labs completed this morning with VPA at 45. Pt was placed on Levothyroxine for his thyroid in hopes to have that stabilized. Pt will be able to discharge within the next 7-10 days.
[2019-02-11 16:23] VITALS: BP 126/70
--- NOTE | 2019-02-11 18:30 | NUR ---
Patient has generally been disorganized, confused, and restless but cooperative and compliant during this shift. He was resistive with cares at times but allowed staff to feed him at meals. Will continue to monitor.
--- NOTE | 2019-02-11 21:10 | PDOC ---
Exam Note: Ramiro Note: Please also refer to the separate dictated note~for this date of service dictated separately.~Patient seen individually. Discussed the patient with Nursing staff reviewed the chart.~Reviewed interim history and current functioning. Reviewed vital signs,~Labs/ Radiology~and current medications noted below. Continue current treatment with the changes noted in the dictated addendum note Assessment: Vital Signs/I&O: Vital Signs Date Time Temp Pulse Resp B/P (MAP) Pulse Ox O2 Delivery O2 Flow Rate FiO2 02/11/19 20:27 Room Air 02/11/19 16:23 98.1 75 16 126/70 (88) 94 I & O 02/10/19 02/10/19 02/11/19 15:00 23:00 07:00 Intake Total 720 ml 240 ml 100 ml Balance 720 ml 240 ml 100 ml Current Medications: Meds: Current Medications Medications (Trade) Dose Ordered Sig/Mingo Route PRN Reason Start Time Stop Time Status Last Admin Dose Admin Divalproex Sodium (Depakote Sprinkles) 750 mg QHS PO 02/11/19 21:00 02/11/19 20:02 I have reviewed the current psychotropics carefully including drug interactions. Risk benefit ratio favors no change other than as noted in my dictated progress note. Diagnosis: Problems: (1) Anxiety disorder (2) Impulse control disorder (3) Lewy body dementia with behavioral disturbance (4) Medical clearance for psychiatric admission PASCUAL RUELAS MD Feb 11, 2019 21:10
--- NOTE | 2019-02-11 23:32 | NUR ---
Last evening pt sat in [facility] in day room he was calm and cooperative took meds crushed in pudding. When being put to bed he was combative with cares but then calmed and has been sleeping.
[2019-02-12] MEDS: ALBUTEROL SULFATE 2.5 MG/3 ML NEBU. NEB SCH ×3 (04:38→16:28)
[2019-02-12] MEDS: LEVOTHYROXINE 50 MCG TABLET PO SCH (05:34)
[2019-02-12 06:28] VITALS: BP 136/80
[2019-02-12] MEDS: SERTRALINE 25 MG TABLET. PO SCH (08:31)
[2019-02-12] MEDS: DIVALPROEX 125 MG CAP.SPRINK PO SCH ×2 (08:31→19:16)
[2019-02-12] MEDS: BUDESONIDE 0.5 MG/2 ML NEBU NEB SCH (10:57)
[2019-02-12 15:52] VITALS: BP 117/73
--- NOTE | 2019-02-12 18:59 | PN ---
DATE: 02/10/2019 PSYCHIATRIC PROGRESS NOTE This late entry 02/10/2019 covers elements not covered in my initial note. SUBJECTIVE: I met with the patient evening of 02/10/2019. Per LYNN Boyd, the patient slept 7-1/2 hours previous night, takes meds in pudding, calm, confused. REVIEW OF SYSTEMS: No CV, , pulmonary, eye, ENT system symptoms on review. Reliability poor. Gait unsteady, in wheelchair. MENTAL STATUS EXAM: Oriented to himself. Insight, judgment, recent and remote memory, attention, concentration, fund of knowledge poor, consistent with his diagnosis mentioned in my initial note. PLAN: No change from initial note. Adjust further as clinically indicated. May need to repeat the valproic acid level and he is quite hypothyroid, being adjusted per Dr. Lebron. MAN Subhash RUELAS MD DR: ENID/kelby JOB#: [id number] / [id number]
--- NOTE | 2019-02-12 19:35 | PN ---
DATE: 02/11/2019 PSYCHIATRIC PROGRESS NOTE This late entry 02/11/2019 covers elements not covered in my initial note. SUBJECTIVE: I met with the patient evening of 02/11/2019 and staffed at a treatment team meeting with the entire team in the morning along with the patient's daughter Mylene who attended the conference. The patient slept 5-3/4 hours. Appetite 70%, remains disorganized, combative with meds. Previous night he was swinging at the nursing staff and nursing aides. Takes his meds crushed. REVIEW OF SYSTEMS: No CV, , pulmonary, eye, ENT system symptoms on review. Reliability poor. Gait unsteady, in wheelchair. MENTAL STATUS EXAM: Oriented to himself. Insight, judgment, recent and remote memory, attention, concentration, fund of knowledge poor, consistent with his diagnosis mentioned in my initial note. PLAN: Start Zoloft 25 mg a day for mood and anxiety symptoms. Valproic acid level 45 on Depakote Sprinkles 500 b.i.d. We will increase this to 500 a.m., 750 at bedtime. Check CBC, CMP, valproic acid level in 3 days. Rest unchanged for now. PASCUAL RUELAS MD DR: ENID/kelby JOB#: [id number] / [id number]
--- NOTE | 2019-02-12 21:00 | NUR ---
Pt was in day room meds taken crushed without difficulty. He is more alert tonight and was cooperative with HS cares.
--- NOTE | 2019-02-12 21:37 | PDOC ---
Exam Note: Ramiro Note: Please also refer to the separate dictated note~for this date of service dictated separately.~Patient seen individually. Discussed the patient with Nursing staff reviewed the chart.~Reviewed interim history and current functioning. Reviewed vital signs,~Labs/ Radiology~and current medications noted below. Continue current treatment with the changes noted in the dictated addendum note Assessment: Vital Signs/I&O: Vital Signs Date Time Temp Pulse Resp B/P (MAP) Pulse Ox O2 Delivery O2 Flow Rate FiO2 02/12/19 21:20 96 Room Air 02/12/19 15:52 97.9 62 18 117/73 (88) I & O 02/11/19 02/11/19 02/12/19 15:00 23:00 07:00 Intake Total 480 ml 360 ml 240 ml Balance 480 ml 360 ml 240 ml Current Medications: Meds: Current Medications Medications (Trade) Dose Ordered Sig/Mingo Route PRN Reason Start Time Stop Time Status Last Admin Dose Admin Divalproex Sodium (Depakote Sprinkles) 500 mg DAILY PO 02/12/19 09:00 02/12/19 08:31 Sertraline HCl (Zoloft) 25 mg DAILY PO 02/12/19 09:00 02/12/19 08:31 I have reviewed the current psychotropics carefully including drug interactions. Risk benefit ratio favors no change other than as noted in my dictated progress note. Diagnosis: Problems: (1) Anxiety disorder (2) Impulse control disorder (3) Lewy body dementia with behavioral disturbance (4) Dementia (5) Medical clearance for psychiatric admission (6) Alzheimer's dementia PASCUAL RUELAS MD Feb 12, 2019 21:37
[2019-02-13] MEDS: BUDESONIDE 0.5 MG/2 ML NEBU NEB SCH ×3 (00:33→20:00)
[2019-02-13] MEDS: ALBUTEROL SULFATE 2.5 MG/3 ML NEBU. NEB SCH ×5 (00:33→20:00)
[2019-02-13] MEDS: LEVOTHYROXINE 50 MCG TABLET PO SCH (05:35)
[2019-02-13 06:19] VITALS: BP 155/89
[2019-02-13] MEDS: DIVALPROEX 125 MG CAP.SPRINK PO SCH ×2 (09:33→19:30)
[2019-02-13] MEDS: SERTRALINE 25 MG TABLET. PO SCH (09:33)
--- NOTE | 2019-02-13 11:39 | NUR ---
Pt is calm, cooperative, compliant, and confused. No agitation, no aggression, no hallucinations, no delusions. He is compliant with his medication and assessment.
[2019-02-13 16:42] VITALS: BP 120/64
--- NOTE | 2019-02-13 20:32 | NUR ---
Nursing note: Assumed care of pt in the day room. He was sitting at the table playing with busy items and continually putting them into his mouth. He was pleasant unless a peer attempted to hand picker one of the items or a staff member took one out of his mouth, then he yelled. He was resistive but meds given in food. He had no s/s or c/o pain.
--- NOTE | 2019-02-13 23:24 | PDOC ---
Exam Note: Ramiro Note: Please also refer to the separate dictated note~for this date of service dictated separately.~Patient seen individually. Discussed the patient with Nursing staff reviewed the chart.~Reviewed interim history and current functioning. Reviewed vital signs,~Labs/ Radiology~and current medications noted below. Continue current treatment with the changes noted in the dictated addendum note Assessment: Vital Signs/I&O: Vital Signs Date Time Temp Pulse Resp B/P (MAP) Pulse Ox O2 Delivery O2 Flow Rate FiO2 02/13/19 20:03 95 Room Air 02/13/19 16:42 97.9 78 20 120/64 (82) I & O 02/12/19 02/12/19 02/13/19 14:59 22:59 06:59 Intake Total 960 ml 240 ml 240 ml Balance 960 ml 240 ml 240 ml Current Medications: I have reviewed the current psychotropics carefully including drug interactions. Risk benefit ratio favors no change other than as noted in my dictated progress note. Diagnosis: Problems: (1) Anxiety disorder (2) Impulse control disorder (3) Lewy body dementia with behavioral disturbance PASCUAL RUELAS MD Feb 13, 2019 23:24
[2019-02-14] MEDS: ALBUTEROL SULFATE 2.5 MG/3 ML NEBU. NEB SCH ×4 (05:14→20:00)
[2019-02-14 05:46] VITALS: BP 122/76
[2019-02-14] MEDS: LEVOTHYROXINE 50 MCG TABLET PO SCH (05:54)
[2019-02-14 08:39] LABS: BASO # 0.1 x10^3/uL (0.0-0.2); BASO % 1 % (0-3); EOS # 0.2 x10^3/uL (0.0-0.7); EOS % 2 % (0-3); HEMATOCRIT 43.9 % (39.0-53.0); HEMOGLOBIN 14.6 g/dL (13.0-17.5); LYMPH # 1.2 x10^3/uL (1.0-4.8); LYMPH % 16 % (24-48); MEAN CORPUSCULAR HEMOGLOBIN 30 pg (25-35); MEAN CORPUSCULAR HGB CONC 33 g/dL (31-37); MEAN CORPUSCULAR VOLUME 90 fL (79-100); MONO % 12 % (0-9); NEUT # 5.5 x10^3uL (1.8-7.7); NEUT % 69 % (31-73); PLATELET COUNT 213 x10^3/uL (140-400); RED CELL DISTRIBUTION WIDTH 16.6 % (11.5-14.5)
[2019-02-14] MEDS: SERTRALINE 25 MG TABLET. PO SCH (08:57)
[2019-02-14] MEDS: DIVALPROEX 125 MG CAP.SPRINK PO SCH ×2 (08:57→19:43)
[2019-02-14 09:00] LABS: ALBUMIN 2.8 g/dL (3.4-5.0); ALBUMIN/GLOBULIN RATIO 0.6 (1.0-1.7); ALK PHOS 77 U/L (46-116); ALT (SGPT) 25 U/L (16-63); ANION GAP 10 (6-14); AST (SGOT) 21 U/L (15-37); BLOOD UREA NITROGEN 26 mg/dL (8-26); BUN/CREATININE RATIO 29 (6-20); CALCIUM 9.1 mg/dL (8.5-10.1); CARBON DIOXIDE 27 mmol/L (21-32); CHLORIDE 106 mmol/L (98-107); CREATININE 0.9 mg/dL (0.7-1.3); GFR 83.2; GLUCOSE 96 mg/dL (70-99); POTASSIUM 4.3 mmol/L (3.5-5.1); SODIUM 143 mmol/L (136-145); TOTAL BILIRUBIN 0.4 mg/dL (0.2-1.0); TOTAL PROTEIN 7.4 g/dL (6.4-8.2)
[2019-02-14 09:02] LABS: VAL ACID 82 mcg/mL (50-100)
--- NOTE | 2019-02-14 10:04 | NUR ---
Pt is calm, cooperative, compliant, and confused. He is compliant with his medication and assessment. No agitation, no aggression, no hallucinations, no delusions however he is restless at times.
[2019-02-14] MEDS: BUDESONIDE 0.5 MG/2 ML NEBU NEB SCH ×2 (10:50→20:00)
[2019-02-14 16:17] VITALS: BP 126/66
--- NOTE | 2019-02-14 21:52 | PDOC ---
Exam Note: Ramiro Note: Please also refer to the separate dictated note~for this date of service dictated separately.~Patient seen individually. Discussed the patient with Nursing staff reviewed the chart.~Reviewed interim history and current functioning. Reviewed vital signs,~Labs/ Radiology~and current medications noted below. Continue current treatment with the changes noted in the dictated addendum note Assessment: Vital Signs/I&O: Vital Signs Date Time Temp Pulse Resp B/P (MAP) Pulse Ox O2 Delivery O2 Flow Rate FiO2 02/14/19 20:20 97 Room Air 02/14/19 16:17 97.9 95 20 126/66 (86) I & O 02/13/19 02/13/19 02/14/19 15:00 23:00 07:00 Intake Total 480 ml 360 ml Balance 480 ml 360 ml Labs: Laboratory Tests Test 02/14/19 08:20 White Blood Count 8.0 x10^3/uL (4.0-11.0) Red Blood Count 4.90 x10^6/uL (4.30-5.70) Hemoglobin 14.6 g/dL (13.0-17.5) Hematocrit 43.9 % (39.0-53.0) Mean Corpuscular Volume 90 fL (79-100) Mean Corpuscular Hemoglobin 30 pg (25-35) Mean Corpuscular Hemoglobin Concent 33 g/dL (31-37) Red Cell Distribution Width 16.6 % (11.5-14.5) H Platelet Count 213 x10^3/uL (140-400) Neutrophils (%) (Auto) 69 % (31-73) Lymphocytes (%) (Auto) 16 % (24-48) L Monocytes (%) (Auto) 12 % (0-9) H Eosinophils (%) (Auto) 2 % (0-3) Basophils (%) (Auto) 1 % (0-3) Neutrophils # (Auto) 5.5 x10^3uL (1.8-7.7) Lymphocytes # (Auto) 1.2 x10^3/uL (1.0-4.8) Monocytes # (Auto) 1.0 x10^3/uL (0.0-1.1) Eosinophils # (Auto) 0.2 x10^3/uL (0.0-0.7) Basophils # (Auto) 0.1 x10^3/uL (0.0-0.2) Sodium Level 143 mmol/L (136-145) Potassium Level 4.3 mmol/L (3.5-5.1) Chloride Level 106 mmol/L (98-107) Carbon Dioxide Level 27 mmol/L (21-32) Anion Gap 10 (6-14) Blood Urea Nitrogen 26 mg/dL (8-26) Creatinine 0.9 mg/dL (0.7-1.3) Estimated GFR (Cockcroft-Gault) 83.2 BUN/Creatinine Ratio 29 (6-20) H Glucose Level 96 mg/dL (70-99) Calcium Level 9.1 mg/dL (8.5-10.1) Total Bilirubin 0.4 mg/dL (0.2-1.0) Aspartate Amino Transferase (AST) 21 U/L (15-37) Alanine Aminotransferase (ALT) 25 U/L (16-63) Alkaline Phosphatase 77 U/L (46-116) Total Protein 7.4 g/dL (6.4-8.2) Albumin 2.8 g/dL (3.4-5.0) L Albumin/Globulin Ratio 0.6 (1.0-1.7) L Valproic Acid Level 82 mcg/mL (50-100) Valproic Acid Last Dose Date 02/13/19 Valproic Acid Last Dose Time 2100 Current Medications: I have reviewed the current psychotropics carefully including drug interactions. Risk benefit ratio favors no change other than as noted in my dictated progress note. Diagnosis: Problems: (1) Anxiety disorder (2) Impulse control disorder (3) Lewy body dementia with behavioral disturbance (4) Medical clearance for psychiatric admission (5) Alzheimer's dementia (6) Dementia PASCUAL RUELAS MD Feb 14, 2019 21:52
--- NOTE | 2019-02-14 22:30 | NUR ---
Nursing note: Assumed care of pt in the day room. He was sitting at the table with a peer, sometimes interacting but minimal awareness. He took his meds crushed in food but grabbed my hands and tried to squeeze them. He was unable to understand commands. Alert to name only. He was noticeably appreciative when I covered him with a blanket.
[2019-02-15] MEDS: ALBUTEROL SULFATE 2.5 MG/3 ML NEBU. NEB SCH ×4 (04:46→23:10)
[2019-02-15 05:34] VITALS: BP 154/68
[2019-02-15] MEDS: LEVOTHYROXINE 50 MCG TABLET PO SCH (05:46)
[2019-02-15] MEDS: traMADol 50 MG TABLET PO PRN ×2 (07:01→08:38)
--- NOTE | 2019-02-15 07:15 | NUR ---
Pt was restless, disorganized, attempting to ambulate unassisted. Staff attempted to redirect him by toileting him, offering him 1:1 interaction, and television time. However pt continued to hit, attempt to ambulate unassisted, was restless and disorganized. Nurse offered PRN tramadol which pt attempted to hit out of nurses hand and he grabbed his water and smashed the cup. PRN zyprexa zydis given.
[2019-02-15] MEDS: SERTRALINE 25 MG TABLET. PO SCH (08:37)
[2019-02-15] MEDS: DIVALPROEX 125 MG CAP.SPRINK PO SCH ×2 (08:37→20:04)
[2019-02-15] MEDS: NON FORMULARY ITEM (Buprenorphine (Butrans) 1 PATCH) TP SCH (09:00)
--- NOTE | 2019-02-15 09:58 | NUR ---
No agitation, no aggression, no hallucinations, no delusions. Pt is calm, cooperative, compliant, and confused. He is compliant with his medication and assessment.
[2019-02-15] MEDS: BUDESONIDE 0.5 MG/2 ML NEBU NEB SCH ×2 (11:57→23:10)
[2019-02-15 16:05] VITALS: BP 98/62
[2019-02-15] MEDS ORDERED: OLANZapine 5 MG TABLET PO SCH (21:00)
--- NOTE | 2019-02-15 21:14 | PDOC ---
Exam Note: Ramiro Note: Please also refer to the separate dictated note~for this date of service dictated separately.~Patient seen individually. Discussed the patient with Nursing staff reviewed the chart.~Reviewed interim history and current functioning. Reviewed vital signs,~Labs/ Radiology~and current medications noted below. Continue current treatment with the changes noted in the dictated addendum note Assessment: Vital Signs/I&O: Vital Signs Date Time Temp Pulse Resp B/P (MAP) Pulse Ox O2 Delivery O2 Flow Rate FiO2 02/15/19 16:05 97.5 64 16 98/62 (74) 94 02/15/19 16:05 Room Air I & O 02/14/19 02/14/19 02/15/19 15:00 23:00 07:00 Intake Total 480 ml 240 ml 240 ml Balance 480 ml 240 ml 240 ml Current Medications: I have reviewed the current psychotropics carefully including drug interactions. Risk benefit ratio favors no change other than as noted in my dictated progress note. Diagnosis: Problems: (1) Anxiety disorder (2) Impulse control disorder (3) Lewy body dementia with behavioral disturbance (4) Alzheimer's dementia PASCUAL RUELAS MD Feb 15, 2019 21:14
--- NOTE | 2019-02-15 21:32 | PN ---
DATE: 02/13/2019 PSYCHIATRIC PROGRESS NOTE This late entry 02/13/2019 covers elements not covered in my initial note. SUBJECTIVE: I met with the patient evening of 02/13/2019. The patient slept 7 hours previous night. Overall, the patient remains confused, takes meds crushed in pudding not aggressive. REVIEW OF SYSTEMS: Ambulation impaired, in Broda chair. No CV, , pulmonary, eye, ENT system symptoms on review. Reliability poor. MENTAL STATUS EXAM: Oriented to himself. Insight, judgment, recent and remote memory, attention, concentration, fund of knowledge poor, consistent with his diagnosis mentioned in my initial note. PLAN: No change from initial note. MAN Subhash RUELAS MD DR: ENID/kelby JOB#: [id number] / [id number]
--- NOTE | 2019-02-15 21:33 | PN ---
DATE: 02/14/2019 PSYCHIATRIC PROGRESS NOTE This late entry 02/14/2019 covers elements not covered in my initial note. SUBJECTIVE: I met with the patient evening of 02/14/2019. The patient slept 8-1/2 hours previous night. Valproic acid level therapeutic at 82. Takes meds in pudding, was somewhat agitated, grabbing the hand of a nursing staff very strongly, but did redirect. REVIEW OF SYSTEMS: Ambulation impaired, in Broda chair. No CV, , pulmonary, eye, ENT system symptoms on review. Reliability poor. MENTAL STATUS EXAMINATION: Oriented to himself. Insight, judgment, recent and remote memory, attention, concentration, fund of knowledge poor, consistent with his diagnosis mentioned in my initial note. PLAN: No change from initial note. MAN Subhash RUELAS MD DR: ENID/kelby JOB#: [id number] / [id number]
--- NOTE | 2019-02-15 22:24 | NUR ---
Nursing Note Pt confused, but cooperative. Somewhat restless, in the broda chair in the day room constant movement noted. Pulling at clothing and blankets. Med and assessment compliant.
[2019-02-16 05:51] VITALS: BP 132/69
[2019-02-16] MEDS: ALBUTEROL SULFATE 2.5 MG/3 ML NEBU. NEB SCH ×4 (06:15→21:24)
[2019-02-16] MEDS: LEVOTHYROXINE 50 MCG TABLET PO SCH (06:18)
[2019-02-16] MEDS: DIVALPROEX 125 MG CAP.SPRINK PO SCH ×2 (09:19→21:01)
[2019-02-16] MEDS: OLANZapine 5 MG TABLET PO SCH (09:19)
[2019-02-16] MEDS: SERTRALINE 25 MG TABLET. PO SCH (09:19)
[2019-02-16] MEDS: CHOLECALCIFEROL (VITAMIN D3) 50,000 UNIT CAPSULE PO SCH (09:19)
[2019-02-16] MEDS: BUDESONIDE 0.5 MG/2 ML NEBU NEB SCH ×2 (10:37→21:24)
--- NOTE | 2019-02-16 13:03 | PN ---
DATE: 02/15/2019 PSYCHIATRIC PROGRESS NOTE This late entry 02/15/2019 covers elements not covered in my initial note. SUBJECTIVE: I met with the patient evening of 02/15/2019. Per LYNN Farmer, the patient slept 6 hours previous night, received Zyprexa at 7:15 due to anxiety, irritability, difficult to redirect at times. REVIEW OF SYSTEMS: Ambulation impaired, in Broda chair. No CV, , pulmonary, eye, ENT system symptoms on review. Reliability poor. MENTAL STATUS EXAM: Oriented to himself. Insight, judgment, recent and remote memory, attention, concentration, fund of knowledge poor, consistent with his diagnosis mentioned in my initial note. Valproic acid level therapeutic at 82. PLAN: Change Zyprexa Zydis 5 mg daily to regular Zyprexa 5 mg daily. Continue Depakote along with Zoloft and Zyprexa p.r.n. Adjust further as clinically indicated. MAN Subhash RUELAS MD DR: ENID/kelby JOB#: [id number] / [id number]
--- NOTE | 2019-02-16 15:21 | NUR ---
Nursing note: Pt was in the dining room this morning for his meds and assessment. He was compliant with his meds crushed in pudding. He was cooperative and sat still throughout the assessment. He has not had any behaviors today. Pt is currently in the day room.
[2019-02-16 17:14] VITALS: BP 130/65
--- NOTE | 2019-02-16 21:09 | PDOC ---
Exam Note: Ramiro Note: Please also refer to the separate dictated note~for this date of service dictated separately.~Patient seen individually. Discussed the patient with Nursing staff reviewed the chart.~Reviewed interim history and current functioning. Reviewed vital signs,~Labs/ Radiology~and current medications noted below. Continue current treatment with the changes noted in the dictated addendum note Assessment: Vital Signs/I&O: Vital Signs Date Time Temp Pulse Resp B/P (MAP) Pulse Ox O2 Delivery O2 Flow Rate FiO2 02/16/19 17:14 97.3 61 20 130/65 (86) 99 02/16/19 15:48 Room Air I & O 02/15/19 02/15/19 02/16/19 15:00 23:00 07:00 Intake Total 600 ml 600 ml Balance 600 ml 600 ml Current Medications: Meds: Current Medications Medications (Trade) Dose Ordered Sig/Mingo Route PRN Reason Start Time Stop Time Status Last Admin Dose Admin Olanzapine (ZyPREXA) 5 mg DAILY PO 02/16/19 09:00 02/16/19 09:19 I have reviewed the current psychotropics carefully including drug interactions. Risk benefit ratio favors no change other than as noted in my dictated progress note. Diagnosis: Problems: (1) Anxiety disorder (2) Impulse control disorder (3) Lewy body dementia with behavioral disturbance (4) Alzheimer's dementia (5) Malnutrition PASCUAL RUELAS MD Feb 16, 2019 21:09
--- NOTE | 2019-02-16 22:10 | NUR ---
Nursing Note Pt confused, but cooperative. Somewhat restless, in the broda chair in the day room constant movement noted. Pulling at clothing and blankets, seems less awake tonight than last night. Med and assessment compliant.
[2019-02-17 04:45] VITALS: BP 115/73
[2019-02-17] MEDS: ALBUTEROL SULFATE 2.5 MG/3 ML NEBU. NEB SCH ×3 (05:49→16:45)
[2019-02-17] MEDS: LEVOTHYROXINE 50 MCG TABLET PO SCH (06:00)
[2019-02-17] MEDS: BUDESONIDE 0.5 MG/2 ML NEBU NEB SCH (10:43)
[2019-02-17] MEDS: SERTRALINE 50 MG TABLET. PO SCH (11:12)
[2019-02-17] MEDS: DIVALPROEX 125 MG CAP.SPRINK PO SCH ×2 (11:12→20:42)
[2019-02-17] MEDS: OLANZapine 5 MG TABLET PO SCH (11:13)
[2019-02-17 15:56] VITALS: BP 125/74
--- NOTE | 2019-02-17 16:35 | NUR ---
Patient in the dining room for assessment and medication. He is calm, cooperative and compliant. Takes his medications crushed in chocolate pudding. Cooperative with feeding and cares. No agitation. No s/s of pain or agitation.
[2019-02-17] MEDS: NYSTATIN TOPICAL POWDER 15GM BOTTLE. TP SCH (20:46)
--- NOTE | 2019-02-17 21:42 | PDOC ---
Exam Note: Ramiro Note: Please also refer to the separate dictated note~for this date of service dictated separately.~Patient seen individually. Discussed the patient with Nursing staff reviewed the chart.~Reviewed interim history and current functioning. Reviewed vital signs,~Labs/ Radiology~and current medications noted below. Continue current treatment with the changes noted in the dictated addendum note Assessment: Vital Signs/I&O: Vital Signs Date Time Temp Pulse Resp B/P (MAP) Pulse Ox O2 Delivery O2 Flow Rate FiO2 02/17/19 20:45 Room Air 02/17/19 15:56 97.5 88 16 125/74 (91) 94 I & O 02/16/19 02/16/19 02/17/19 15:00 23:00 07:00 Intake Total 240 ml 240 ml 100 ml Balance 240 ml 240 ml 100 ml Current Medications: Meds: Current Medications Medications (Trade) Dose Ordered Sig/Mingo Route PRN Reason Start Time Stop Time Status Last Admin Dose Admin Sertraline HCl (Zoloft) 50 mg DAILY PO 02/17/19 09:00 02/17/19 11:12 Nystatin (Nystop) 1 akua BID TP 02/17/19 21:00 02/17/19 20:46 I have reviewed the current psychotropics carefully including drug interactions. Risk benefit ratio favors no change other than as noted in my dictated progress note. Diagnosis: Problems: (1) Anxiety disorder (2) Impulse control disorder (3) Lewy body dementia with behavioral disturbance (4) Alzheimer's dementia PASCUAL RUELAS MD Feb 17, 2019 21:42
--- NOTE | 2019-02-17 22:43 | NUR ---
Nursing Note Pt confused. Pt is in broda chair in the day room sleeping. pt was compliant with med pass. Meds were crushed in chocolate pudding.
[2019-02-18] MEDS: BUDESONIDE 0.5 MG/2 ML NEBU NEB SCH ×3 (02:29→21:00)
[2019-02-18] MEDS: ALBUTEROL SULFATE 2.5 MG/3 ML NEBU. NEB SCH ×5 (02:29→21:00)
[2019-02-18] MEDS: LEVOTHYROXINE 50 MCG TABLET PO SCH (04:54)
[2019-02-18 05:17] VITALS: BP 150/60
[2019-02-18] MEDS: OLANZapine 5 MG TABLET PO SCH (08:41)
[2019-02-18] MEDS: SERTRALINE 50 MG TABLET. PO SCH (08:41)
[2019-02-18] MEDS: DIVALPROEX 125 MG CAP.SPRINK PO SCH ×2 (08:41→20:17)
--- NOTE | 2019-02-18 08:56 | NUR ---
WEEKLY ACTIVITY THERAPY NOTE Date of Admission: 02/01/2019 Date of AT Assessment: 02/05/2019 Goal aimed: to increase sensory stimulation Initial goal: Pt. will engage in one individual Activity Therapy session before discharge. Weekly progress towards goal: on track, 0/1 Group participation level: zero Weekly highlights: Behaviors observed: restless and disorganized at times Plan: no change to goal Beneficial adaptations: supervision with sturdy sensory stimulation activities
[2019-02-18] MEDS: NYSTATIN TOPICAL POWDER 15GM BOTTLE. TP SCH ×2 (09:00→20:17)
--- NOTE | 2019-02-18 09:06 | PN ---
DATE: 02/16/2019 PSYCHIATRIC PROGRESS NOTE This late entry, 02/16, covers the elements not covered in my initial note. SUBJECTIVE: I met with the patient on the evening of 02/16. Per Deb, the patient takes his meds crushed in pudding. He slept reasonably well, remains confused. REVIEW OF SYSTEMS: Ambulation impaired, in Broda chair. No CV, , pulmonary, eye, ENT systems symptoms on review. Reliability poor. MENTAL STATUS EXAM: Oriented to himself. Insight, judgment, recent and remote memory, attention, concentration, fund of knowledge poor, consistent with his diagnosis mentioned in my initial note. PLAN: No change from initial note, but we will increase his Zoloft from 25 mg a day to 50 mg a day. Rest unchanged. MAN Subhash RUELAS MD DR: ENID/kelby JOB#: [id number] / [id number]
--- NOTE | 2019-02-18 12:08 | NUR ---
WEEKLY NOTE: Pt is eating 75% of meals and sleeping roughly 6 hours per night. Pt is improving behaviorally and taking his medications on a more regular basis. Pt is cooperative with staff more and less combative with cares. Pt does however, appear restless within his movements and needs redirection for his attempts to walk alone d/t unsteady gait/safety concerns. Pt will plan to discharge back to [facility] middle of next week.
[2019-02-18 15:40] VITALS: BP 131/69
--- NOTE | 2019-02-18 16:22 | NUR ---
Patient was mildly agitated and resistive this morning, including to being resistive to morning medications and being fed breakfast. He was restless in the Broda during the morning but more cooperative at lunch. He was mostly cooperative with cares throughout the day. Will continue to monitor.
--- NOTE | 2019-02-18 21:39 | PDOC ---
Exam Note: Ramiro Note: Please also refer to the separate dictated note~for this date of service dictated separately.~Patient seen individually. Discussed the patient with Nursing staff reviewed the chart.~Reviewed interim history and current functioning. Reviewed vital signs,~Labs/ Radiology~and current medications noted below. Continue current treatment with the changes noted in the dictated addendum note Assessment: Vital Signs/I&O: Vital Signs Date Time Temp Pulse Resp B/P (MAP) Pulse Ox O2 Delivery O2 Flow Rate FiO2 02/18/19 16:52 Room Air 02/18/19 15:40 97.4 60 16 131/69 (89) 94 I & O 02/17/19 02/17/19 02/18/19 15:00 23:00 07:00 Intake Total 960 ml 480 ml 240 ml Balance 960 ml 480 ml 240 ml Current Medications: I have reviewed the current psychotropics carefully including drug interactions. Risk benefit ratio favors no change other than as noted in my dictated progress note. Diagnosis: Problems: (1) Anxiety disorder (2) Impulse control disorder (3) Lewy body dementia with behavioral disturbance (4) Alzheimer's dementia PASCUAL RUELAS MD Feb 18, 2019 21:39
--- NOTE | 2019-02-19 00:28 | NUR ---
Patient was in day room at time of medication administration and assessments. Patient was rambling, non-sensical. Patient can be combative, but is easy to redirect. Calm, compliant and cooperative. No other notable behaviors at this time.
[2019-02-19] MEDS: LEVOTHYROXINE 50 MCG TABLET PO SCH (05:33)
[2019-02-19 05:37] VITALS: BP 154/80
[2019-02-19] MEDS: OLANZapine 5 MG TABLET PO SCH (07:47)
[2019-02-19] MEDS: DIVALPROEX 125 MG CAP.SPRINK PO SCH ×2 (07:47→20:31)
[2019-02-19] MEDS: SERTRALINE 50 MG TABLET. PO SCH (07:47)
[2019-02-19] MEDS: BUDESONIDE 0.5 MG/2 ML NEBU NEB SCH ×2 (09:20→20:00)
[2019-02-19] MEDS: NYSTATIN TOPICAL POWDER 15GM BOTTLE. TP SCH ×2 (09:20→20:31)
[2019-02-19] MEDS: ALBUTEROL SULFATE 2.5 MG/3 ML NEBU. NEB SCH ×5 (09:20→20:44)
--- NOTE | 2019-02-19 14:35 | NUR ---
Patient has been restless, disorganized, calm, and cooperative throughout this shift. He has been cooperative with meals and was mostly cooperative with his shower. Will continue to monitor.
--- NOTE | 2019-02-19 15:00 | NUR ---
SW contacted pt dtr, Mylene, to see if she needed anything; she reports that she talks to nursing daily and feels that pt is doing well. SW explained that pt for sure was doing better and the psychiatrist thought pt could leave in the middle of next week. Pt dtr was very thankful and got tearful. SW will plan to call pt dtr in the beginning of the week to confirm this.
[2019-02-19 16:04] VITALS: BP 119/62
--- NOTE | 2019-02-19 16:59 | NUR ---
Patient refused his breathing treatment. He repeatedly swatted at the nebulizer mask and then covered his head with a blanket. Will continue to monitor.
--- NOTE | 2019-02-19 21:32 | PDOC ---
Exam Note: Ramiro Note: Please also refer to the separate dictated note~for this date of service dictated separately.~Patient seen individually. Discussed the patient with Nursing staff reviewed the chart.~Reviewed interim history and current functioning. Reviewed vital signs,~Labs/ Radiology~and current medications noted below. Continue current treatment with the changes noted in the dictated addendum note Assessment: Vital Signs/I&O: Vital Signs Date Time Temp Pulse Resp B/P (MAP) Pulse Ox O2 Delivery O2 Flow Rate FiO2 02/19/19 16:04 96.7 80 18 119/62 (81) 96 02/18/19 21:00 Room Air I & O 02/18/19 02/18/19 02/19/19 14:59 22:59 06:59 Intake Total 1560 ml 360 ml 240 ml Balance 1560 ml 360 ml 240 ml Current Medications: I have reviewed the current psychotropics carefully including drug interactions. Risk benefit ratio favors no change other than as noted in my dictated progress note. Diagnosis: Problems: (1) Anxiety disorder (2) Impulse control disorder (3) Lewy body dementia with behavioral disturbance (4) Alzheimer's dementia PASCUAL RUELAS MD Feb 19, 2019 21:32
--- NOTE | 2019-02-20 01:31 | NUR ---
Last evening pt sat at table in day room and entertained his self with magazines and plastic nuts and bolts. He was generally pleasant and cooperative. Meds taken in pudding.
--- NOTE | 2019-02-20 01:49 | PN ---
DATE: 02/18/2019 This late entry 02/18/2019 covers elements not covered in my initial note. SUBJECTIVE: I met with the patient evening of 02/18/2019. Staffed a treatment team meeting with the entire team in the morning. The patient is sleeping average 6 hours. Appetite 60%, remains confused, calm, cooperative. He gets agitated if the daughter visits and her visits have been curtailed successfully. Cooperative with meds and assessment, restless. REVIEW OF SYSTEMS: Ambulation impaired, in Broda chair. No CV, , pulmonary, eye, ENT system symptoms on review. MENTAL STATUS EXAM: Oriented to himself. Insight, judgment, recent and remote memory, attention, concentration, fund of knowledge poor, consistent with his diagnosis mentioned in my initial note. PLAN: No change from initial note. MAN Subhash RUELAS MD DR: ENID/kelby JOB#: [id number] / [id number]
[2019-02-20] MEDS: LEVOTHYROXINE 50 MCG TABLET PO SCH (05:17)
[2019-02-20] MEDS: hydrOXYzine HCL 10 MG TABLET PO PRN (05:24)
--- NOTE | 2019-02-20 05:30 | NUR ---
After getting pt dressed and out to day room he was restless then became agitated and hitting staff. PRN Atarax given by syringe then placed on mattress in quiet room.
[2019-02-20] MEDS: ALBUTEROL SULFATE 2.5 MG/3 ML NEBU. NEB SCH ×4 (05:36→23:35)
[2019-02-20 06:38] VITALS: BP 103/69
--- NOTE | 2019-02-20 07:27 | PN ---
DATE: 02/17/2019 PSYCHIATRIC PROGRESS NOTE This late entry, 02/17/2019, covers elements not covered in my initial note. SUBJECTIVE: I met with the patient the evening of 02/17/2019. Per LYNN Holm, the patient slept 6-1/4 hours previous night. He remains confused, but not agitated or aggressive, more redirectable. REVIEW OF SYSTEMS: Ambulation is impaired, in Broda chair. No CV, , pulmonary, eye, ENT system symptoms on review. Reliability is poor. MENTAL STATUS EXAM: Oriented to himself. Insight, judgment, recent and remote memory, attention, concentration, fund of knowledge poor, consistent with his diagnosis mentioned in my initial note. PLAN: No change from initial note. MAN Subhash RUELAS MD DR: ENID/kelby JOB#: [id number] / [id number]
[2019-02-20] MEDS: BUDESONIDE 0.5 MG/2 ML NEBU NEB SCH ×2 (08:00→23:35)
[2019-02-20] MEDS: SERTRALINE 50 MG TABLET. PO SCH (08:21)
[2019-02-20] MEDS: NYSTATIN TOPICAL POWDER 15GM BOTTLE. TP SCH ×2 (08:22→21:00)
[2019-02-20] MEDS: DIVALPROEX 125 MG CAP.SPRINK PO SCH ×2 (08:22→21:11)
[2019-02-20] MEDS: OLANZapine 5 MG TABLET PO SCH (08:22)
--- NOTE | 2019-02-20 14:12 | NUR ---
Patient was been restless, disorganized, agitated, and combative at breakfast. HE was throwing straws, refusing to eat, and called an aide trying to help him eat 'lazy bitch'. After breakfast patient was less irritable and he was calm and cooperative at lunch. He has continued to be calm afterwards and is currently napping in his Broda. Will continue to monitor.
[2019-02-20 15:44] VITALS: BP 141/77
--- NOTE | 2019-02-20 23:19 | PDOC ---
Exam Note: Ramiro Note: Please also refer to the separate dictated note~for this date of service dictated separately.~Patient seen individually. Discussed the patient with Nursing staff reviewed the chart.~Reviewed interim history and current functioning. Reviewed vital signs,~Labs/ Radiology~and current medications noted below. Continue current treatment with the changes noted in the dictated addendum note Assessment: Vital Signs/I&O: Vital Signs Date Time Temp Pulse Resp B/P (MAP) Pulse Ox O2 Delivery O2 Flow Rate FiO2 02/20/19 16:22 93 Room Air 02/20/19 15:44 97.9 64 20 141/77 (98) I & O 02/19/19 02/19/19 02/20/19 15:00 23:00 07:00 Intake Total 840 ml 600 ml Balance 840 ml 600 ml Current Medications: I have reviewed the current psychotropics carefully including drug interactions. Risk benefit ratio favors no change other than as noted in my dictated progress note. Diagnosis: Problems: (1) Anxiety disorder (2) Impulse control disorder (3) Lewy body dementia with behavioral disturbance (4) Medical clearance for psychiatric admission (5) Alzheimer's dementia PASCUAL RUELAS MD Feb 20, 2019 23:19
--- NOTE | 2019-02-21 01:19 | NUR ---
Nsg Note: Patient was in day room at time of medication administration and assessments. Patient was falling asleep in the chair. Patient took his medications crushed in pudding. No other notable behaviors at this time.
[2019-02-21] MEDS: LEVOTHYROXINE 50 MCG TABLET PO SCH (05:39)
[2019-02-21] MEDS: ALBUTEROL SULFATE 2.5 MG/3 ML NEBU. NEB SCH ×4 (05:42→19:47)
[2019-02-21 06:00] VITALS: BP 134/65
[2019-02-21] MEDS: SERTRALINE 50 MG TABLET. PO SCH (08:18)
[2019-02-21] MEDS: DIVALPROEX 125 MG CAP.SPRINK PO SCH ×2 (08:18→20:09)
[2019-02-21] MEDS: OLANZapine 5 MG TABLET PO SCH (08:18)
[2019-02-21] MEDS: NYSTATIN TOPICAL POWDER 15GM BOTTLE. TP SCH ×2 (08:18→20:09)
[2019-02-21] MEDS: BUDESONIDE 0.5 MG/2 ML NEBU NEB SCH ×2 (11:37→19:47)
[2019-02-21] MEDS: hydrOXYzine HCL 10 MG TABLET PO PRN (11:56)
[2019-02-21 15:46] VITALS: BP 138/59
--- NOTE | 2019-02-21 17:25 | NUR ---
Patient is in the dining room for assessment and medications. He is calm, cooperative and compliant. Takes medications crushed and mixed with a small amount of chocolate pudding. Cooperative with care. Began to get more restless and somewhat agitated right before lunch. Medicated with PRN Atarax at 1200, with good effect. No agitation, no s/s of pain or discomfort.
--- NOTE | 2019-02-21 20:37 | PDOC ---
Exam Note: Ramiro Note: Please also refer to the separate dictated note~for this date of service dictated separately.~Patient seen individually. Discussed the patient with Nursing staff reviewed the chart.~Reviewed interim history and current functioning. Reviewed vital signs,~Labs/ Radiology~and current medications noted below. Continue current treatment with the changes noted in the dictated addendum note Assessment: Vital Signs/I&O: Vital Signs Date Time Temp Pulse Resp B/P (MAP) Pulse Ox O2 Delivery O2 Flow Rate FiO2 02/21/19 19:55 95 Room Air 02/21/19 15:46 97.2 74 16 138/59 (85) I & O 02/20/19 02/20/19 02/21/19 15:00 23:00 07:00 Intake Total 1280 ml 240 ml 360 ml Balance 1280 ml 240 ml 360 ml Current Medications: I have reviewed the current psychotropics carefully including drug interactions. Risk benefit ratio favors no change other than as noted in my dictated progress note. Diagnosis: Problems: (1) Anxiety disorder (2) Impulse control disorder (3) Lewy body dementia with behavioral disturbance (4) Alzheimer's dementia PASCUAL RUELAS MD Feb 21, 2019 20:37
--- NOTE | 2019-02-21 23:19 | NUR ---
Pt located in the dayroom this evening. Pt calm and drowsy, resting in his wheelchair. Compliant with crushed medications. Pt ambulated to room with assist x2. No agitation or aggression.
[2019-02-22 05:20] VITALS: BP 119/72
[2019-02-22] MEDS: ALBUTEROL SULFATE 2.5 MG/3 ML NEBU. NEB SCH ×4 (05:20→23:17)
[2019-02-22] MEDS: LEVOTHYROXINE 50 MCG TABLET PO SCH (05:45)
[2019-02-22 07:25] LABS: BASO % 1 % (0-3); EOS # 0.3 x10^3/uL (0.0-0.7); EOS % 3 % (0-3); HEMATOCRIT 44.8 % (39.0-53.0); HEMOGLOBIN 14.7 g/dL (13.0-17.5); LYMPH # 1.6 x10^3/uL (1.0-4.8); LYMPH % 21 % (24-48); MEAN CORPUSCULAR HEMOGLOBIN 30 pg (25-35); MEAN CORPUSCULAR HGB CONC 33 g/dL (31-37); MEAN CORPUSCULAR VOLUME 90 fL (79-100); MONO % 13 % (0-9); NEUT # 4.7 x10^3uL (1.8-7.7); NEUT % 62 % (31-73); PLATELET COUNT 234 x10^3/uL (140-400); RED BLOOD COUNT 4.97 x10^6/uL (4.30-5.70); RED CELL DISTRIBUTION WIDTH 17.7 % (11.5-14.5); WHITE BLOOD COUNT 7.6 x10^3/uL (4.0-11.0)
[2019-02-22 07:40] LABS: ALBUMIN 2.7 g/dL (3.4-5.0); ALBUMIN/GLOBULIN RATIO 0.6 (1.0-1.7); CALCIUM 8.7 mg/dL (8.5-10.1); CREATININE 1.1 mg/dL (0.7-1.3); POTASSIUM 4.1 mmol/L (3.5-5.1); TOTAL BILIRUBIN 0.3 mg/dL (0.2-1.0); TOTAL PROTEIN 7.3 g/dL (6.4-8.2)
[2019-02-22] MEDS: OLANZapine 5 MG TABLET PO SCH (08:18)
[2019-02-22] MEDS: SERTRALINE 50 MG TABLET. PO SCH (08:18)
[2019-02-22] MEDS: NYSTATIN TOPICAL POWDER 15GM BOTTLE. TP SCH ×2 (08:18→19:54)
[2019-02-22] MEDS: DIVALPROEX 125 MG CAP.SPRINK PO SCH ×2 (08:18→19:53)
[2019-02-22] MEDS: hydrOXYzine HCL 10 MG TABLET PO PRN ×2 (08:18→19:53)
[2019-02-22] MEDS: NON FORMULARY ITEM (Buprenorphine (Butrans) 1 PATCH) TP SCH (09:00)
[2019-02-22] MEDS: BUDESONIDE 0.5 MG/2 ML NEBU NEB SCH ×2 (11:13→23:17)
--- NOTE | 2019-02-22 12:25 | NUR ---
KATERINA contacted Reta about pt discharging on Friday back to [place]. Due to their transport schedule Reta requested that pt leave on instead and they will plan to pick pt up around 10:00. Reta did ask for updates on pt to be sent and KATERINA will send them by the end of the day.
--- NOTE | 2019-02-22 14:21 | NUR ---
Patient is in his broda chair in the dining room for assessment and medication. He is resistant to both, refusing to take his medication and swatting at staff with redirection. Resistant and combative with shower. Continued to refuse morning meds that were crushed and mixed with chocolate pudding. PRN Zyprexa Zydis given sublingually at 0900, with moderate effect. With continued attempts, patient did eventually accept his morning medications at 0945. Incontinent of urine in the day room. Brought to his room to get cleaned up and changed. Very disorganized and confused, difficult to redirect. Urinated all over the floor and became angry with redirection, attempting to pinch and scratch staff. Once he was cleaned up, dried and redressed he calmed down. Brought to dining room to eat lunch, cooperative with being fed. After lunch, took a nap in the day room in his broda chair. No further episodes of agitation at this time, no s/s of pain or discomfort.
--- NOTE | 2019-02-22 14:47 | NUR ---
[facility] Social Work Discharge Planning Form Patient Name TRANG GARCIA Admit Date: 02/01/19 DISCHARGE PLAN Discharge Destination: Discharge back to [facility] Care Assessment: N/A Level II Assessment: N/A Transportation: [facility] to pick pt up around 1500. Special Instructions/Notes: Please fax discharge orders over to pt facility fax listed below. DISCHARGE TO FACILITY Facility: [facility] Address: [address] [place] [address]; [place] [address] Contact Name: Reta DON: Contact Name: Please ask for the nurse receiving pt upon admission to give report. PCP: Dr. Nikita Urrutia
[2019-02-22 15:38] LABS: VAL ACID 82 mcg/mL (50-100)
[2019-02-22 16:24] VITALS: BP 160/73
--- NOTE | 2019-02-22 17:35 | NUR ---
Patient agitated and combative, swatting at staff. PRN Zyprexa Zydis 2.5mg given at 1730. UA ordered per Dr. Martinez, pending collection at this time.
--- NOTE | 2019-02-22 20:36 | PDOC ---
Exam Note: Ramiro Note: Please also refer to the separate dictated note~for this date of service dictated separately.~Patient seen individually. Discussed the patient with Nursing staff reviewed the chart.~Reviewed interim history and current functioning. Reviewed vital signs,~Labs/ Radiology~and current medications noted below. Continue current treatment with the changes noted in the dictated addendum note Assessment: Vital Signs/I&O: Vital Signs Date Time Temp Pulse Resp B/P (MAP) Pulse Ox O2 Delivery O2 Flow Rate FiO2 02/22/19 16:24 97.6 70 16 160/73 (102) 97 02/22/19 16:10 Room Air I & O 02/21/19 02/21/19 02/22/19 15:00 23:00 07:00 Intake Total 480 ml 340 ml Balance 480 ml 340 ml Labs: Laboratory Tests Test 02/22/19 05:00 02/22/19 07:07 Valproic Acid Level 82 mcg/mL (50-100) Valproic Acid Last Dose Date mar 09 Valproic Acid Last Dose Time 2100 White Blood Count 7.6 x10^3/uL (4.0-11.0) Red Blood Count 4.97 x10^6/uL (4.30-5.70) Hemoglobin 14.7 g/dL (13.0-17.5) Hematocrit 44.8 % (39.0-53.0) Mean Corpuscular Volume 90 fL (79-100) Mean Corpuscular Hemoglobin 30 pg (25-35) Mean Corpuscular Hemoglobin Concent 33 g/dL (31-37) Red Cell Distribution Width 17.7 % (11.5-14.5) H Platelet Count 234 x10^3/uL (140-400) Neutrophils (%) (Auto) 62 % (31-73) Lymphocytes (%) (Auto) 21 % (24-48) L Monocytes (%) (Auto) 13 % (0-9) H Eosinophils (%) (Auto) 3 % (0-3) Basophils (%) (Auto) 1 % (0-3) Neutrophils # (Auto) 4.7 x10^3uL (1.8-7.7) Lymphocytes # (Auto) 1.6 x10^3/uL (1.0-4.8) Monocytes # (Auto) 1.0 x10^3/uL (0.0-1.1) Eosinophils # (Auto) 0.3 x10^3/uL (0.0-0.7) Basophils # (Auto) 0.0 x10^3/uL (0.0-0.2) Sodium Level 142 mmol/L (136-145) Potassium Level 4.1 mmol/L (3.5-5.1) Chloride Level 106 mmol/L (98-107) Carbon Dioxide Level 26 mmol/L (21-32) Anion Gap 10 (6-14) Blood Urea Nitrogen 33 mg/dL (8-26) H Creatinine 1.1 mg/dL (0.7-1.3) Estimated GFR (Cockcroft-Gault) 66.0 BUN/Creatinine Ratio 30 (6-20) H Glucose Level 86 mg/dL (70-99) Calcium Level 8.7 mg/dL (8.5-10.1) Total Bilirubin 0.3 mg/dL (0.2-1.0) Aspartate Amino Transferase (AST) 23 U/L (15-37) Alanine Aminotransferase (ALT) 27 U/L (16-63) Alkaline Phosphatase 67 U/L (46-116) Total Protein 7.3 g/dL (6.4-8.2) Albumin 2.7 g/dL (3.4-5.0) L Albumin/Globulin Ratio 0.6 (1.0-1.7) L Current Medications: I have reviewed the current psychotropics carefully including drug interactions. Risk benefit ratio favors no change other than as noted in my dictated progress note. Diagnosis: Problems: (1) Anxiety disorder (2) Impulse control disorder (3) Lewy body dementia with behavioral disturbance (4) Alzheimer's dementia PASCUAL RUELAS MD Feb 22, 2019 20:36
--- NOTE | 2019-02-22 22:42 | PN ---
DATE: 02/19/2019 PSYCHIATRIC PROGRESS NOTE This late entry 02/19/2019 covers the elements not covered in my initial note. SUBJECTIVE: I met with the patient in the evening. The patient slept 5 hours previous night per LYNN Bennett. He had a good day, was calm, calmer in the morning, ate breakfast, compliant with medications, had a shower. REVIEW OF SYSTEMS: No CV, , pulmonary, eye, ENT system symptoms on review. Reliability poor. Gait unsteady, in Broda chair. MENTAL STATUS EXAM: Oriented to himself. Insight, judgment, recent and remote memory, attention, concentration, fund of knowledge poor, consistent with his diagnosis mentioned in my initial note. PLAN: No change from initial note. MAN Subhash RUELAS MD DR: ENID/kelby JOB#: [id number] / [id number]
--- NOTE | 2019-02-22 23:06 | PN ---
DATE: 02/20/2019 PSYCHIATRIC PROGRESS NOTE This late entry of 02/20 covers elements not covered in my initial note. SUBJECTIVE: I met with the patient on the evening of 02/20. The patient slept 6 hours the previous night. He was combative in the morning, had to be in the quiet room, difficult at breakfast, takes meds crushed, swinging at nursing staff. REVIEW OF SYSTEMS: No CV, , pulmonary, eye, ENT system symptoms on review. Reliability poor. Gait unsteady, in wheelchair Broda chair. MENTAL STATUS EXAMINATION: Oriented to himself. Insight, judgment, recent and remote memory, attention, concentration, fund of knowledge poor, consistent with his diagnosis mentioned in my initial note. PLAN: No change from initial note. MAN Subhash RUELAS MD DR: ENID/kelby JOB#: [id number] / [id number]
--- NOTE | 2019-02-22 23:08 | PN ---
DATE: 02/21/2019 PSYCHIATRIC PROGRESS NOTE This late entry of 02/21 covers elements not covered in my initial note. SUBJECTIVE: I met with the patient in the evening. The patient has been intermittently agitated, restless. REVIEW OF SYSTEMS: Ambulation impaired, in wheelchair. No CV, , pulmonary, eye, ENT system symptoms on review. Reliability poor. MENTAL STATUS EXAMINATION: Oriented to himself. Insight, judgment, recent and remote memory, attention, concentration, fund of knowledge poor; consistent with his diagnosis mentioned in my initial note. PLAN: No change from initial note. MAN Subhash RUELAS MD DR: ENID/kelby JOB#: [id number] / [id number]
--- NOTE | 2019-02-23 00:12 | NUR ---
Nursing Note Pt is confused and restless in the chair. constant movement noted. compliant with meds in pudding.
[2019-02-23] MEDS: ALBUTEROL SULFATE 2.5 MG/3 ML NEBU. NEB SCH ×4 (05:28→23:47)
[2019-02-23 05:39] VITALS: BP 139/67
[2019-02-23] MEDS: LEVOTHYROXINE 50 MCG TABLET PO SCH (05:55)
[2019-02-23 07:55] LABS: BILIRUBIN,URINE NEG (NEG); CLARITY,URINE CLOUDY; COLOR,URINE YELLOW; GLUCOSE,URINE NEG (NEG)
[2019-02-23 07:56] LABS: BACTERIA,URINE MANY /HPF (0-FEW); NITRITE,URINE NEG (NEG); RBC,URINE >40 /HPF (0-2); SQUAMOUS EPITHELIAL CELL,UR OCC /LPF; UROBILINOGEN,URINE 0.2 mg/dL (0.2 mg/dL)
[2019-02-23] MEDS: BUDESONIDE 0.5 MG/2 ML NEBU NEB SCH ×2 (08:00→23:47)
[2019-02-23] MEDS: SERTRALINE 50 MG TABLET. PO SCH (08:03)
[2019-02-23] MEDS: DIVALPROEX 125 MG CAP.SPRINK PO SCH ×2 (08:03→20:44)
[2019-02-23] MEDS: CHOLECALCIFEROL (VITAMIN D3) 50,000 UNIT CAPSULE PO SCH (08:03)
[2019-02-23] MEDS: OLANZapine 5 MG TABLET PO SCH (08:03)
[2019-02-23] MEDS: NYSTATIN TOPICAL POWDER 15GM BOTTLE. TP SCH ×2 (08:04→20:44)
--- NOTE | 2019-02-23 15:55 | NUR ---
NURSING NOTE PT WAS IN DINNING ROOM THIS AM UPON MEDICATION ADMINISTRATION. PT TAKES MEDS CRUSHED IN PUDDING, PT COMPLIANT WITH MEDS TODAY. PT SKIN IS INTACT. PT NEEDS HELP AT MEALS WITH FEEDING. PT CAN GET AGITATED EASILY AND START SWINGING AND CURSING AT STAFF. PT WAS IN DAY ROOM MOST OF THE DAY. SEEMS LIKE PT GETS BORED AND GETS AGITATED AT TIMES AND TRIES TO PUSH THE TABLE AWAY. WILL CONTINUE TO MONITOR. LYNN NATION.
[2019-02-23 16:18] VITALS: BP 120/85
--- NOTE | 2019-02-23 20:40 | PDOC ---
Exam Note: Ramiro Note: Please also refer to the separate dictated note~for this date of service dictated separately.~Patient seen individually. Discussed the patient with Nursing staff reviewed the chart.~Reviewed interim history and current functioning. Reviewed vital signs,~Labs/ Radiology~and current medications noted below. Continue current treatment with the changes noted in the dictated addendum note Assessment: Vital Signs/I&O: Vital Signs Date Time Temp Pulse Resp B/P (MAP) Pulse Ox O2 Delivery O2 Flow Rate FiO2 02/23/19 16:29 Room Air 02/23/19 16:18 97.7 56 18 120/85 (97) 94 I & O 02/22/19 02/22/19 02/23/19 15:00 23:00 07:00 Intake Total 600 ml 740 ml Balance 600 ml 740 ml Labs: Laboratory Tests Test 02/23/19 05:00 Urine Collection Type U cath Urine Color Yellow Urine Clarity Cloudy Urine pH 8.5 Urine Specific [place] 1.015 Urine Protein Trace (NEG-TRACE) Urine Glucose (UA) Neg mg/dL (NEG) Urine Ketones (Stick) Neg mg/dL (NEG) Urine Blood Large (NEG) Urine Nitrite Neg (NEG) Urine Bilirubin Neg (NEG) Urine Urobilinogen Dipstick 0.2 mg/dL (0.2 mg/dL) Urine Leukocyte Esterase Small (NEG) Urine RBC >40 /HPF (0-2) Urine WBC 11-20 /HPF (0-4) Urine Squamous Epithelial Cells Occ /LPF Urine Transitional Epithelial Cells Occ /LPF Urine Renal Epithelial Cells Occ /LPF Urine Bacteria Many /HPF (0-FEW) Current Medications: I have reviewed the current psychotropics carefully including drug interactions. Risk benefit ratio favors no change other than as noted in my dictated progress note. Diagnosis: Problems: (1) Anxiety disorder (2) Impulse control disorder (3) Lewy body dementia with behavioral disturbance (4) Alzheimer's dementia (5) Malnutrition PASCUAL RUELAS MD Feb 23, 2019 20:40
--- NOTE | 2019-02-23 21:29 | NUR ---
Nsg Note: Patient was in day room at time of medication administration and assessments. Patient was calm, compliant and cooperative. Patient has a skin tear which appears to be new on his right inner bicep. It was assessed, cleaned and steri strips and aquamfoam bandage placed on it. Techs believe it may have gotten stuck or hit on something while in Broda or while transferring. Patient is very combative with cares. No other notable behaviors at this time.
[2019-02-24] MEDS: ALBUTEROL SULFATE 2.5 MG/3 ML NEBU. NEB SCH ×4 (05:11→20:00)
[2019-02-24 05:26] VITALS: BP 143/76
[2019-02-24] MEDS: LEVOTHYROXINE 50 MCG TABLET PO SCH (05:31)
[2019-02-24] MEDS: OLANZapine 5 MG TABLET PO SCH (08:34)
[2019-02-24] MEDS: NYSTATIN TOPICAL POWDER 15GM BOTTLE. TP SCH ×2 (08:34→20:39)
[2019-02-24] MEDS: DIVALPROEX 125 MG CAP.SPRINK PO SCH ×2 (08:34→20:40)
[2019-02-24] MEDS: SERTRALINE 50 MG TABLET. PO SCH (08:34)
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
[2019-02-24] MEDS: BUDESONIDE 0.5 MG/2 ML NEBU NEB SCH ×2 (11:06→20:00)
[2019-02-24 15:55] VITALS: BP 115/61
--- NOTE | 2019-02-24 20:45 | PDOC ---
Exam Note: Ramiro Note: Please also refer to the separate dictated note~for this date of service dictated separately.~Patient seen individually. Discussed the patient with Nursing staff reviewed the chart.~Reviewed interim history and current functioning. Reviewed vital signs,~Labs/ Radiology~and current medications noted below. Continue current treatment with the changes noted in the dictated addendum note Assessment: Vital Signs/I&O: Vital Signs Date Time Temp Pulse Resp B/P (MAP) Pulse Ox O2 Delivery O2 Flow Rate FiO2 02/24/19 20:21 95 Room Air 02/24/19 15:55 98.6 92 20 115/61 (79) I & O 02/23/19 02/23/19 02/24/19 15:00 23:00 07:00 Intake Total 840 ml 240 ml 100 ml Balance 840 ml 240 ml 100 ml Current Medications: I have reviewed the current psychotropics carefully including drug interactions. Risk benefit ratio favors no change other than as noted in my dictated progress note. Diagnosis: Problems: (1) Anxiety disorder (2) Impulse control disorder (3) Lewy body dementia with behavioral disturbance (4) Alzheimer's dementia PASCUAL RUELAS MD Feb 24, 2019 20:45
[2019-02-25] MEDS ORDERED: ALBU1.25 NEB (02:02)
[2019-02-25] MEDS ORDERED: CHOL500016 PO (02:05)
[2019-02-25] MEDS ORDERED: BUDE0.5A11 IH (02:05)
[2019-02-25] MEDS ORDERED: DIVA-53 PO (02:06)
[2019-02-25] MEDS ORDERED: LEVO50TA5 PO (02:07)
[2019-02-25] MEDS ORDERED: MAG30ORA2 PO (02:08)
[2019-02-25] MEDS ORDERED: MAGN2400 PO (02:09)
[2019-02-25] MEDS ORDERED: METH99.22 TP (02:10)
[2019-02-25] MEDS ORDERED: NYST15CR TP (02:11)
[2019-02-25] MEDS ORDERED: OLAN5TAB9 PO (02:12)
[2019-02-25] MEDS ORDERED: SERT50TA PO (02:12)
[2019-02-25] MEDS ORDERED: HYDR10SY16 PO (02:13)
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
--- NOTE | 2019-02-25 02:39 | PN ---
DATE: 02/23/2019 PSYCHIATRIC PROGRESS NOTE This late entry 02/23/2019 covers elements not covered in my initial note. SUBJECTIVE: I met with the patient evening of 02/23/2019. The patient slept 7-3/4 hours previous night. He remains somewhat withdrawn, grabbing at staff at times, that is part of his confusion. Ambulation impaired, in Broda chair. REVIEW OF SYSTEMS: No CV, , pulmonary, eye system symptoms on review. RELIABILITY: Poor. MENTAL STATUS EXAM: Oriented to himself. Insight, judgment, recent and remote memory, attention, concentration, fund of knowledge poor, consistent with his diagnosis mentioned in my initial note. PLAN: No change from initial note. MAN Subhash RUELAS MD DR: ENID/kelby JOB#: [id number] / [id number]
--- NOTE | 2019-02-25 03:59 | NUR ---
Liang Note: Patient was in day room at time of medication administration and assessments. Patient was combative and spitting his medications out at staff. Patient did sleep throughout the night. Discharge prepped by JASKARAN BAILEY. No other behaviors at this time. Addendum: 02/25/19 at 0555 by ZULMA MARCELO RN Patient combative towards staff this morning. Patient still spitting any medications placed into his mouth if not holding his mouth shut.
[2019-02-25] MEDS: ALBUTEROL SULFATE 2.5 MG/3 ML NEBU. NEB SCH ×4 (05:05→20:10)
[2019-02-25] MEDS: LEVOTHYROXINE 50 MCG TABLET PO SCH (05:51)
[2019-02-25 06:04] VITALS: BP 121/69
--- NOTE | 2019-02-25 07:30 | NUR ---
Patient was combative during the previous shift and has a new UTI. MD called, discharge was cancelled. SW and patient's facility notified.
[2019-02-25] MEDS: DIVALPROEX 125 MG CAP.SPRINK PO SCH ×2 (08:09→19:43)
[2019-02-25] MEDS: OLANZapine 5 MG TABLET PO SCH (08:09)
[2019-02-25] MEDS: SERTRALINE 50 MG TABLET. PO SCH (08:09)
--- NOTE | 2019-02-25 10:13 | NUR ---
WEEKLY ACTIVITY THERAPY NOTE Date of Admission: 02/01/2019 Date of AT Assessment: 02/05/2019 Goal aimed: to increase sensory stimulation Initial goal: Pt. will engage in one individual Activity Therapy session before discharge. Weekly progress towards goal: on track, 0/1 Group participation level: zero Weekly highlights: often around day room Behaviors observed: sleeping or restless in Broda wheelchair, fidgeting with papers and blankets Plan: no change to goal Beneficial adaptations: supervision with sturdy sensory stimulation activities
[2019-02-25] MEDS: BUDESONIDE 0.5 MG/2 ML NEBU NEB SCH ×2 (11:05→20:10)
[2019-02-25] MEDS: NYSTATIN TOPICAL POWDER 15GM BOTTLE. TP SCH ×2 (11:15→19:43)
--- NOTE | 2019-02-25 15:55 | NUR ---
SW received call from pt dtr Reta, who was upset that no one told her about pt canceled discharge. SW profusely apologized and explained to pt dtr that pt had been doing well for some time; however, his behaviors increased and nursing took a urine sample, which has come back as positive. Pt will be starting an antibiotic; however, SW is not able to tell pt dtr what that is at this time, as SW does not know if the hospitalist has seen pt at this time. Pt dtr inquired about pt TSH levels and was tearful about pt having to stay for another week or so to give time for pt behaviors to decrease before returning to [facility]. SW encouraged pt dtr to call in once a day, per her normal and if anything changes, SW will be in contact with pt.
[2019-02-25 16:20] VITALS: BP 103/65
--- NOTE | 2019-02-25 17:17 | NUR ---
WEEKLY NOTE: Pt is eating roughly 50-75% of meals and sleeping on average 6 hours. Pt was to discharge today; however, due to pt combativeness and recent positive UA, pt discharge was postponed. Pt has on a couple occasions spit out medications and will need to have them better hidden within his food. Once the antibiotic is started and pt behaviors decreased, we will look at discharging pt. Potential ELOS for .
--- NOTE | 2019-02-25 18:15 | NUR ---
Patient has been restless throughout this shift, resistive with cares, and attempts at feeding him. During the meals, he continues to try to chew on blankets and towels, and can be combative with aides trying to feed him. Will continue to monitor.
--- NOTE | 2019-02-25 20:57 | PDOC ---
Exam Note: Ramiro Note: Please also refer to the separate dictated note~for this date of service dictated separately.~Patient seen individually. Discussed the patient with Nursing staff reviewed the chart.~Reviewed interim history and current functioning. Reviewed vital signs,~Labs/ Radiology~and current medications noted below. Continue current treatment with the changes noted in the dictated addendum note Assessment: Vital Signs/I&O: Vital Signs Date Time Temp Pulse Resp B/P (MAP) Pulse Ox O2 Delivery O2 Flow Rate FiO2 02/25/19 20:10 94 Room Air 02/25/19 16:20 98.0 66 18 103/65 (78) I & O 02/24/19 02/24/19 02/25/19 15:00 23:00 07:00 Intake Total 720 ml 300 ml Balance 720 ml 300 ml Current Medications: I have reviewed the current psychotropics carefully including drug interactions. Risk benefit ratio favors no change other than as noted in my dictated progress note. Diagnosis: Problems: (1) Anxiety disorder (2) Impulse control disorder (3) Lewy body dementia with behavioral disturbance (4) Medical clearance for psychiatric admission (5) Alzheimer's dementia PASCUAL RUELAS MD Feb 25, 2019 20:57
--- NOTE | 2019-02-25 21:13 | NUR ---
Nursing Note Pt is confused and restless in the chair. constant movement noted. compliant with meds in pudding.
[2019-02-26] MEDS: ALBUTEROL SULFATE 2.5 MG/3 ML NEBU. NEB SCH ×4 (04:58→23:07)
[2019-02-26] MEDS: LEVOTHYROXINE 50 MCG TABLET PO SCH (05:53)
[2019-02-26 06:05] VITALS: BP 148/49
[2019-02-26] MEDS: OLANZapine 5 MG TABLET PO SCH (08:10)
[2019-02-26] MEDS: NYSTATIN TOPICAL POWDER 15GM BOTTLE. TP SCH ×2 (08:10→20:23)
[2019-02-26] MEDS: SERTRALINE 50 MG TABLET. PO SCH (08:10)
[2019-02-26] MEDS: DIVALPROEX 125 MG CAP.SPRINK PO SCH ×2 (08:11→20:23)
[2019-02-26] MEDS: BUDESONIDE 0.5 MG/2 ML NEBU NEB SCH ×2 (10:27→23:07)
[2019-02-26 16:06] VITALS: BP 112/61
--- NOTE | 2019-02-26 18:30 | NUR ---
Patient has been restless throughout this shift, though usually cooperative with cares after some redirection. During the meals, he continues to try to chew on blankets and towels, and was less cooperative at dinner. Will continue to monitor.
--- NOTE | 2019-02-26 20:32 | PDOC ---
Exam Note: Ramiro Note: Please also refer to the separate dictated note~for this date of service dictated separately.~Patient seen individually. Discussed the patient with Nursing staff reviewed the chart.~Reviewed interim history and current functioning. Reviewed vital signs,~Labs/ Radiology~and current medications noted below. Continue current treatment with the changes noted in the dictated addendum note Assessment: Vital Signs/I&O: Vital Signs Date Time Temp Pulse Resp B/P (MAP) Pulse Ox O2 Delivery O2 Flow Rate FiO2 02/26/19 17:04 Room Air 02/26/19 16:06 97.2 72 18 112/61 (78) 95 I & O 02/25/19 02/25/19 02/26/19 15:00 23:00 07:00 Intake Total 720 ml 240 ml 120 ml Balance 720 ml 240 ml 120 ml Current Medications: I have reviewed the current psychotropics carefully including drug interactions. Risk benefit ratio favors no change other than as noted in my dictated progress note. Diagnosis: Problems: (1) Anxiety disorder (2) Impulse control disorder (3) Lewy body dementia with behavioral disturbance (4) Alzheimer's dementia PASCUAL RUELAS MD Feb 26, 2019 20:32
--- NOTE | 2019-02-26 22:41 | NUR ---
Liang Note: Patient was in the day room at time of medication administration and assessments. Patient sitting in Broda with eyes closed and mouth opening for medications crushed in pudding. Patient compliant. Sleeping in/out. No other notable behaviors at this time. Addendum: 02/27/19 at 0527 by ZULMA MARCELO RN Patient skin tear appeared to have been re-opened and had some serosanguineous drainage. Cleaned with steri strip placed on with aquafoam on top.
--- NOTE | 2019-02-27 04:24 | PN ---
DATE: 02/25/2019 PSYCHIATRIC PROGRESS NOTE This late entry of 02/25/2019 covers elements not covered in my initial note. SUBJECTIVE: I met with the patient in the evening and staffed at a treatment team meeting with the entire team in the morning. The patient is sleeping 6-7 hours, appetite is 50%, intermittently compliant with medications, confused. He does have a UTI, culture sensitivity awaited, we will defer to Dr. Lebron. REVIEW OF SYSTEMS: Ambulation impaired, in Broda chair. No CV, , pulmonary, eye, ENT system symptoms on review. Reliability poor. MENTAL STATUS EXAM: Oriented to himself. Insight, judgment, recent and remote memory, attention, concentration, fund of knowledge poor, consistent with his diagnosis mentioned in my initial note. PLAN: No change from initial note and treat the UTI once we get the sensitivity back. Rest unchanged. MAN Subhash RUELAS MD DR: ENID/kelby JOB#: [id number] / [id number]
--- NOTE | 2019-02-27 04:32 | PN ---
DATE: 02/24/2019 PSYCHIATRIC PROGRESS NOTE This late entry 02/24/2019 covers elements not covered in my initial note. SUBJECTIVE: I met with the patient evening of 02/24/2019. Per Jo Ann RN, patient slept 7 hours previous night. He remains confused, at times gets verbally abrasive making statements "God damn it." REVIEW OF SYSTEMS: No CV, , pulmonary, eye, ENT system symptoms on review. Reliability poor. Gait unsteady, in wheelchair. MENTAL STATUS EXAM: Oriented to himself. Insight, judgment, recent and remote memory, attention, concentration, fund of knowledge poor, consistent with his diagnosis mentioned in my initial note. PLAN: No change from initial note. MAN Subhash RUELAS MD DR: ENID/kelby JOB#: [id number] / [id number]
[2019-02-27 05:40] VITALS: BP 131/68
[2019-02-27] MEDS: LEVOTHYROXINE 50 MCG TABLET PO SCH (05:57)
[2019-02-27] MEDS: ALBUTEROL SULFATE 2.5 MG/3 ML NEBU. NEB SCH ×3 (06:01→17:29)
[2019-02-27] MEDS: OLANZapine 5 MG TABLET PO SCH (08:18)
[2019-02-27] MEDS: SERTRALINE 50 MG TABLET. PO SCH (08:18)
[2019-02-27] MEDS: DIVALPROEX 125 MG CAP.SPRINK PO SCH ×2 (08:19→20:20)
[2019-02-27] MEDS: NYSTATIN TOPICAL POWDER 15GM BOTTLE. TP SCH ×2 (12:06→20:21)
[2019-02-27] MEDS: BUDESONIDE 0.5 MG/2 ML NEBU NEB SCH (13:52)
[2019-02-27] MEDS: AMOXICILLIN 250 MG CAPSULE PO SCH ×2 (15:24→20:20)
[2019-02-27 15:51] VITALS: BP 110/64
--- NOTE | 2019-02-27 18:51 | NUR ---
Patient has been restless throughout this shift, though usually cooperative with cares after some redirection. During the meals, he continues to try to chew on blankets and towels, and was more combative at meals than yesterday. Will continue to monitor.
--- NOTE | 2019-02-27 23:00 | NUR ---
Pt sleeping in his broda in the dayroom. Compliant with crushed medications. Restless at times.
[2019-02-28] MEDS: BUDESONIDE 0.5 MG/2 ML NEBU NEB SCH ×2 (04:47→11:07)
[2019-02-28] MEDS: ALBUTEROL SULFATE 2.5 MG/3 ML NEBU. NEB SCH ×3 (04:47→16:19)
[2019-02-28] MEDS: LEVOTHYROXINE 50 MCG TABLET PO SCH (06:06)
[2019-02-28 06:16] VITALS: BP 100/56
[2019-02-28] MEDS: OLANZapine 5 MG TABLET PO SCH (07:59)
[2019-02-28] MEDS: AMOXICILLIN 250 MG CAPSULE PO SCH ×3 (07:59→20:17)
[2019-02-28] MEDS: DIVALPROEX 125 MG CAP.SPRINK PO SCH ×2 (07:59→20:16)
[2019-02-28] MEDS: LACTOBACILLUS RHAMNOSUS GG 1 CAPSULE. PO SCH ×2 (08:00→20:16)
[2019-02-28] MEDS: SERTRALINE 50 MG TABLET. PO SCH (08:00)
[2019-02-28] MEDS: NYSTATIN TOPICAL POWDER 15GM BOTTLE. TP SCH ×2 (08:00→20:17)
--- NOTE | 2019-02-28 12:38 | NUR ---
Patient is complaint upon medication administration. Patient is sitting quietly in dining room eating lunch. Patient does require assistance with meals. Patient is Pleasant, but mostly non verbal. Will continue to monitor.
[2019-02-28 16:17] VITALS: BP 122/90
--- NOTE | 2019-02-28 22:01 | PDOC ---
Exam Note: Ramiro Note: This is a late entry for DOS 02/27/2019. Please also refer to the separate dictated note~for this date of service dictated separately.~Patient seen individually. Discussed the patient with Nursing staff reviewed the chart.~Reviewed interim history and current functioning. Reviewed vital signs,~Labs/ Radiology~and current medications noted below. Continue current treatment with the changes noted in the dictated addendum note Assessment: Vital Signs/I&O: Vital Signs Date Time Temp Pulse Resp B/P (MAP) Pulse Ox O2 Delivery O2 Flow Rate FiO2 02/28/19 21:15 96 Room Air 02/28/19 16:17 98.4 88 20 122/90 (101) I & O 02/27/19 02/27/19 02/28/19 15:00 23:00 07:00 Intake Total 720 ml 240 ml 240 ml Balance 720 ml 240 ml 240 ml Current Medications: Meds: Current Medications Medications (Trade) Dose Ordered Sig/Mingo Route PRN Reason Start Time Stop Time Status Last Admin Dose Admin Lactobacillus Rhamnosus (Culturelle) 1 cap BID PO 02/28/19 09:00 02/28/19 20:16 I have reviewed the current psychotropics carefully including drug interactions. Risk benefit ratio favors no change other than as noted in my dictated progress note. Diagnosis: Problems: (1) Anxiety disorder (2) Impulse control disorder (3) Lewy body dementia with behavioral disturbance (4) Alzheimer's dementia PASCUAL RUELAS MD Feb 28, 2019 22:01
--- NOTE | 2019-02-28 23:43 | NUR ---
Pt located in the dayroom this evening. Pt restless and impulsive at times. At other times, pt sits calmly and fidgets with items placed in front of him at the table. Compliant with crushed medications. No combativeness or agitation with britany root.
[2019-03-01] MEDS: LEVOTHYROXINE 50 MCG TABLET PO SCH (05:40)
[2019-03-01 05:59] VITALS: BP 147/80
[2019-03-01 07:13] LABS: BASO # 0.1 x10^3/uL (0.0-0.2); BASO % 1 % (0-3); EOS # 0.3 x10^3/uL (0.0-0.7); EOS % 5 % (0-3); HEMATOCRIT 40.1 % (39.0-53.0); HEMOGLOBIN 13.2 g/dL (13.0-17.5); LYMPH # 1.4 x10^3/uL (1.0-4.8); LYMPH % 22 % (24-48); MEAN CORPUSCULAR HEMOGLOBIN 30 pg (25-35); MEAN CORPUSCULAR HGB CONC 33 g/dL (31-37); MEAN CORPUSCULAR VOLUME 91 fL (79-100); MONO % 15 % (0-9); NEUT # 3.7 x10^3uL (1.8-7.7); NEUT % 58 % (31-73); PLATELET COUNT 207 x10^3/uL (140-400); RED BLOOD COUNT 4.41 x10^6/uL (4.30-5.70); RED CELL DISTRIBUTION WIDTH 17.3 % (11.5-14.5); WHITE BLOOD COUNT 6.4 x10^3/uL (4.0-11.0)
[2019-03-01 07:22] LABS: ALBUMIN 2.3 g/dL (3.4-5.0); ALBUMIN/GLOBULIN RATIO 0.6 (1.0-1.7); CALCIUM 8.4 mg/dL (8.5-10.1); CREATININE 1.2 mg/dL (0.7-1.3); GFR 59.7; POTASSIUM 4.7 mmol/L (3.5-5.1); TOTAL BILIRUBIN 0.1 mg/dL (0.2-1.0); TOTAL PROTEIN 6.2 g/dL (6.4-8.2)
[2019-03-01] MEDS: NON FORMULARY ITEM (Buprenorphine (Butrans) 1 PATCH) TP SCH (07:56)
[2019-03-01] MEDS: AMOXICILLIN 250 MG CAPSULE PO SCH ×3 (07:56→19:35)
[2019-03-01] MEDS: LACTOBACILLUS RHAMNOSUS GG 1 CAPSULE. PO SCH ×2 (07:56→19:34)
[2019-03-01] MEDS: OLANZapine 5 MG TABLET PO SCH (07:56)
[2019-03-01] MEDS: SERTRALINE 50 MG TABLET. PO SCH (07:56)
[2019-03-01] MEDS: NYSTATIN TOPICAL POWDER 15GM BOTTLE. TP SCH ×2 (07:56→19:34)
[2019-03-01] MEDS: DIVALPROEX 125 MG CAP.SPRINK PO SCH ×2 (07:56→19:35)
[2019-03-01] MEDS: ALBUTEROL SULFATE 2.5 MG/3 ML NEBU. NEB SCH ×3 (08:00→22:59)
[2019-03-01] MEDS: BUDESONIDE 0.5 MG/2 ML NEBU NEB SCH ×2 (08:00→22:59)
[2019-03-01 16:06] VITALS: BP 132/76
--- NOTE | 2019-03-01 19:31 | NUR ---
Patient has been restless throughout this shift, though usually cooperative with cares after some redirection. During the meals, he can be labile and will refuse to eat many foods. He will drink almost anything provided to him in a cup with a lid and straw. Patient was walked to dinner, CNAs reported that patient is less restless in the heavy chairs than in the BRODA. Will continue to monitor and report to oncoming shift.
--- NOTE | 2019-03-01 20:29 | PDOC ---
Exam Note: Ramiro Note: Please also refer to the separate dictated note~for this date of service dictated separately.~Patient seen individually. Discussed the patient with Nursing staff reviewed the chart.~Reviewed interim history and current functioning. Reviewed vital signs,~Labs/ Radiology~and current medications noted below. Continue current treatment with the changes noted in the dictated addendum note Assessment: Vital Signs/I&O: Vital Signs Date Time Temp Pulse Resp B/P (MAP) Pulse Ox O2 Delivery O2 Flow Rate FiO2 03/01/19 17:51 95 Room Air 03/01/19 16:06 97.8 73 18 132/76 (94) I & O 02/28/19 02/28/19 03/01/19 14:59 22:59 06:59 Intake Total 960 ml 600 ml Balance 960 ml 600 ml Labs: Laboratory Tests Test 03/01/19 07:00 White Blood Count 6.4 x10^3/uL (4.0-11.0) Red Blood Count 4.41 x10^6/uL (4.30-5.70) Hemoglobin 13.2 g/dL (13.0-17.5) Hematocrit 40.1 % (39.0-53.0) Mean Corpuscular Volume 91 fL (79-100) Mean Corpuscular Hemoglobin 30 pg (25-35) Mean Corpuscular Hemoglobin Concent 33 g/dL (31-37) Red Cell Distribution Width 17.3 % (11.5-14.5) H Platelet Count 207 x10^3/uL (140-400) Neutrophils (%) (Auto) 58 % (31-73) Lymphocytes (%) (Auto) 22 % (24-48) L Monocytes (%) (Auto) 15 % (0-9) H Eosinophils (%) (Auto) 5 % (0-3) H Basophils (%) (Auto) 1 % (0-3) Neutrophils # (Auto) 3.7 x10^3uL (1.8-7.7) Lymphocytes # (Auto) 1.4 x10^3/uL (1.0-4.8) Monocytes # (Auto) 1.0 x10^3/uL (0.0-1.1) Eosinophils # (Auto) 0.3 x10^3/uL (0.0-0.7) Basophils # (Auto) 0.1 x10^3/uL (0.0-0.2) Sodium Level 143 mmol/L (136-145) Potassium Level 4.7 mmol/L (3.5-5.1) Chloride Level 108 mmol/L (98-107) H Carbon Dioxide Level 29 mmol/L (21-32) Anion Gap 6 (6-14) Blood Urea Nitrogen 43 mg/dL (8-26) H Creatinine 1.2 mg/dL (0.7-1.3) Estimated GFR (Cockcroft-Gault) 59.7 BUN/Creatinine Ratio 36 (6-20) H Glucose Level 93 mg/dL (70-99) Calcium Level 8.4 mg/dL (8.5-10.1) L Total Bilirubin 0.1 mg/dL (0.2-1.0) L Aspartate Amino Transferase (AST) 21 U/L (15-37) Alanine Aminotransferase (ALT) 24 U/L (16-63) Alkaline Phosphatase 58 U/L (46-116) Total Protein 6.2 g/dL (6.4-8.2) L Albumin 2.3 g/dL (3.4-5.0) L Albumin/Globulin Ratio 0.6 (1.0-1.7) L Current Medications: I have reviewed the current psychotropics carefully including drug interactions. Risk benefit ratio favors no change other than as noted in my dictated progress note. Diagnosis: Problems: (1) Anxiety disorder (2) Impulse control disorder (3) Lewy body dementia with behavioral disturbance (4) Alzheimer's dementia (5) Malnutrition PASCUAL RUELAS MD Mar 01, 2019 20:29
--- NOTE | 2019-03-01 21:18 | PN ---
DATE: 02/26/2019 PSYCHIATRIC PROGRESS NOTE This late entry 02/26/2019 covers the elements not covered in my initial note. SUBJECTIVE: I met with the patient in the evening of 02/26/2019. Per LYNN Bennett, the patient slept 6-3/4 hours previous night. He remains disorganized, confused, not aggressive. He is in a Broda chair, does seem to have a UTI, which could be worsening his restlessness and agitation. REVIEW OF SYSTEMS: Ambulation impaired. No CV, , pulmonary, eye system symptoms on review. MENTAL STATUS EXAM: Oriented to himself. Insight, judgment, recent and remote memory, attention, concentration, fund of knowledge poor, consistent with his diagnosis mentioned in my initial note. PLAN: No change from initial note. Treat the UTI once culture returns. MAN Subhash RUELAS MD DR: ENID/kelby JOB#: [id number] / [id number]
--- NOTE | 2019-03-01 22:52 | NUR ---
Nursing Note The patient was located in the day room for his medication and assessment. The patient took his medication crushed in pudding. The patient was appropriate during interactions with this nurse. The patient is currently sleeping in his room.
--- NOTE | 2019-03-02 03:53 | PN ---
DATE: 02/28/2019 PSYCHIATRIC PROGRESS NOTE This late entry 02/28/2019 covers the elements not covered in my initial note. SUBJECTIVE: I met with the patient in the evening of 02/28/2019. The patient slept 7 hours previous night. He takes his meds crushed, anxious, restless, partly due to the UTI. REVIEW OF SYSTEMS: No CV, , pulmonary, eye, ENT system symptoms on review. Reliability poor. MENTAL STATUS EXAM: Oriented to himself. Insight, judgment, recent and remote memory, attention, concentration, fund of knowledge poor, consistent with his diagnosis mentioned in my initial note. PLAN: No change from initial note. MAN Subhash RUELAS MD DR: ENID/kelby JOB#: [id number] / [id number]
--- NOTE | 2019-03-02 03:54 | PN ---
DATE: 02/28/2019 PSYCHIATRIC PROGRESS NOTE This late entry of 02/28 covers elements not covered in my initial note. SUBJECTIVE: I met with the patient on the evening of 02/28. The patient slept 6-1/4 hours the previous night. He remains fidgety, anxious, combative with cares; does have UTI, on Amoxil 500 t.i.d. REVIEW OF SYSTEMS: Ambulation impaired, in Broda chair. No CV, , pulmonary, eye, ENT system symptoms on review. Reliability poor. MENTAL STATUS EXAMINATION: Oriented to himself. Insight, judgment, recent and remote memory, attention, concentration, fund of knowledge poor; consistent with his diagnosis as mentioned in my initial note. PLAN: No change from initial note. MAN Subhash RUELAS MD DR: ENID/kelby JOB#: [id number] / [id number]
[2019-03-02] MEDS: LEVOTHYROXINE 50 MCG TABLET PO SCH (06:05)
[2019-03-02] MEDS: ALBUTEROL SULFATE 2.5 MG/3 ML NEBU. NEB SCH ×4 (06:19→20:00)
[2019-03-02 06:28] VITALS: BP 102/60
[2019-03-02] MEDS: OLANZapine 5 MG TABLET PO SCH (08:10)
[2019-03-02] MEDS: SERTRALINE 50 MG TABLET. PO SCH (08:10)
[2019-03-02] MEDS: AMOXICILLIN 250 MG CAPSULE PO SCH ×3 (08:10→20:47)
[2019-03-02] MEDS: DIVALPROEX 125 MG CAP.SPRINK PO SCH ×2 (08:10→20:47)
[2019-03-02] MEDS: CHOLECALCIFEROL (VITAMIN D3) 50,000 UNIT CAPSULE PO SCH (08:10)
[2019-03-02] MEDS: LACTOBACILLUS RHAMNOSUS GG 1 CAPSULE. PO SCH ×2 (08:10→20:47)
[2019-03-02] MEDS: NYSTATIN TOPICAL POWDER 15GM BOTTLE. TP SCH ×2 (08:11→20:47)
[2019-03-02] MEDS: BUDESONIDE 0.5 MG/2 ML NEBU NEB SCH ×2 (10:26→20:00)
[2019-03-02 15:53] VITALS: BP 139/52
--- NOTE | 2019-03-02 16:34 | NUR ---
Patient has been restless throughout this shift, though usually cooperative with cares after some redirection. Patient was walked to breakfast and his shower, CNAs report that he has been cooperative with shower and cares. Will continue to monitor and report to oncoming shift.
--- NOTE | 2019-03-02 20:53 | PDOC ---
Exam Note: Ramiro Note: Please also refer to the separate dictated note~for this date of service dictated separately.~Patient seen individually. Discussed the patient with Nursing staff reviewed the chart.~Reviewed interim history and current functioning. Reviewed vital signs,~Labs/ Radiology~and current medications noted below. Continue current treatment with the changes noted in the dictated addendum note Assessment: Vital Signs/I&O: Vital Signs Date Time Temp Pulse Resp B/P (MAP) Pulse Ox O2 Delivery O2 Flow Rate FiO2 03/02/19 20:19 95 Room Air 03/02/19 15:53 98.2 90 16 139/52 (81) I & O 03/01/19 03/01/19 03/02/19 15:00 23:00 07:00 Intake Total 1200 ml 240 ml 0 ml Balance 1200 ml 240 ml 0 ml Current Medications: I have reviewed the current psychotropics carefully including drug interactions. Risk benefit ratio favors no change other than as noted in my dictated progress note. Diagnosis: Problems: (1) Anxiety disorder (2) Lewy body dementia with behavioral disturbance (3) Impulse control disorder (4) Alzheimer's dementia PASCUAL RUELAS MD Mar 02, 2019 20:53
--- NOTE | 2019-03-03 01:22 | NUR ---
Nursing Note The patient was located in the day room for his medication and assessment. The patient took his medication crushed in pudding. The patient was appropriate during interactions with this nurse. The patient was irritable during cares.The patient is currently sleeping in his room.
[2019-03-03] MEDS: ALBUTEROL SULFATE 2.5 MG/3 ML NEBU. NEB SCH ×4 (05:18→21:30)
[2019-03-03 05:59] VITALS: BP 120/76
[2019-03-03] MEDS: LEVOTHYROXINE 50 MCG TABLET PO SCH (06:34)
[2019-03-03] MEDS: AMOXICILLIN 250 MG CAPSULE PO SCH ×3 (07:54→21:27)
[2019-03-03] MEDS: LACTOBACILLUS RHAMNOSUS GG 1 CAPSULE. PO SCH ×2 (07:55→21:27)
[2019-03-03] MEDS: OLANZapine 5 MG TABLET PO SCH (07:55)
[2019-03-03] MEDS: DIVALPROEX 125 MG CAP.SPRINK PO SCH ×2 (07:55→21:27)
[2019-03-03] MEDS: NYSTATIN TOPICAL POWDER 15GM BOTTLE. TP SCH ×2 (07:55→21:27)
[2019-03-03] MEDS: SERTRALINE 50 MG TABLET. PO SCH (07:55)
[2019-03-03] MEDS: BUDESONIDE 0.5 MG/2 ML NEBU NEB SCH ×2 (10:44→21:30)
--- NOTE | 2019-03-03 13:30 | NUR ---
Social work student spent an hour with the pt in the day room. We played with colorful nuts and bolts toys, a fidget blanket, and a medium-sized rubber ball. Pt was attentive to the objects in front of him and he would interact with the different toys at various times. When the pt appeared lost in thought, a gentle touch on the shoulder would bring his attention back and he would say, "Well, hi there, again." We talked to each other during our session, yet most of his phrases consisted of word salad. Pt also liked to place objects in his mouth and SWS would redirect pt from this behavior by offering water or an activity distraction. SWS also made sure that pt was drinking enough water since pt's lip are often dry. During the hour, pt drank from one cup of water from time to time. SWS worker noticed that pt's behavior was calm, compliant, and he was agreeable with spending some quality time together. SWS will check back with pt tomorrow.
[2019-03-03 16:11] VITALS: BP 180/85
--- NOTE | 2019-03-03 18:30 | NUR ---
Patient has been restless throughout this shift, though usually cooperative with cares after some redirection. Patient was walked to meals, he became less irritable as the day progressed. During the afternoon he sat in a weighted chair in the day room, kept busy with toy gears, blankets, and towels. Will continue to monitor and report to oncoming shift.
--- NOTE | 2019-03-03 20:18 | PN ---
DATE: 03/02/2019 PSYCHIATRIC PROGRESS NOTE. This late entry of 03/02/2019 covers the elements not covered in my initial note. SUBJECTIVE: I met with the patient in the evening of 03/02/2019. Per LYNN Bennett, the patient slept 6-1/2 hours previous night, again walked to breakfast, gets a little agitated at times, confused, but much less so than before. REVIEW OF SYSTEMS: Ambulation impaired, in Broda chair. No CV, , pulmonary, eye, ENT system symptoms on review. Reliability poor. MENTAL STATUS EXAM: Oriented to himself. Insight, judgment, recent and remote memory, attention, concentration, fund of knowledge poor, consistent with his diagnosis mentioned in my initial note. PLAN: No change from initial note. MAN Subhash RUELAS MD DR: ENID/kelby JOB#: [id number] / [id number]
--- NOTE | 2019-03-03 20:21 | PN ---
DATE: 03/01/2019 This late entry 03/01/2019 covers elements not covered in my initial note. SUBJECTIVE: I met with the patient evening of 03/01/2019. Per Donald RN, the patient slept 6-1/2 hours previous night. He walked to breakfast, cooperated with shower, but often gets agitated during cares. He remains confused. REVIEW OF SYSTEMS: Ambulation impaired, in Broda chair. No CV, , pulmonary, eye, ENT system symptoms on review. Reliability poor. MENTAL STATUS EXAM: Oriented to himself. Insight, judgment, recent and remote memory, attention, concentration, fund of knowledge poor, consistent with his diagnosis mentioned in my initial note. PLAN: No change from initial note. MAN Subhash RUELAS MD DR: ENID/kelby JOB#: [id number] / [id number]
--- NOTE | 2019-03-03 20:42 | PDOC ---
Exam Note: Ramiro Note: Please also refer to the separate dictated note~for this date of service dictated separately.~Patient seen individually. Discussed the patient with Nursing staff reviewed the chart.~Reviewed interim history and current functioning. Reviewed vital signs,~Labs/ Radiology~and current medications noted below. Continue current treatment with the changes noted in the dictated addendum note Assessment: Vital Signs/I&O: Vital Signs Date Time Temp Pulse Resp B/P (MAP) Pulse Ox O2 Delivery O2 Flow Rate FiO2 03/03/19 16:11 98.1 70 16 180/85 (116) 100 03/03/19 16:04 Room Air I & O 03/02/19 03/02/19 03/03/19 15:00 23:00 07:00 Intake Total 1800 ml 480 ml 0 ml Balance 1800 ml 480 ml 0 ml Current Medications: I have reviewed the current psychotropics carefully including drug interactions. Risk benefit ratio favors no change other than as noted in my dictated progress note. Diagnosis: Problems: (1) Anxiety disorder (2) Impulse control disorder (3) Lewy body dementia with behavioral disturbance (4) Alzheimer's dementia (5) Malnutrition PASCUAL RUELAS MD Mar 03, 2019 20:42
[2019-03-04] MEDS ORDERED: AMOX500C PO ×2 (01:22→01:24)
[2019-03-04] MEDS ORDERED: AMOX500T PO (01:23)
[2019-03-04] MEDS ORDERED: LACT1POW11 PO (01:26)
[2019-03-04] MEDS ORDERED: OLAN5TAB9 PO (01:27)
--- NOTE | 2019-03-04 03:10 | NUR ---
Last evening pt sat at a table in day room busy with items at the table. Meds were given crushed in pudding. He walked to bed with assist of 2.
[2019-03-04] MEDS: ALBUTEROL SULFATE 2.5 MG/3 ML NEBU. NEB SCH ×4 (05:00→23:15)
[2019-03-04] MEDS: BUDESONIDE 0.5 MG/2 ML NEBU NEB SCH ×2 (05:00→23:15)
[2019-03-04] MEDS: LEVOTHYROXINE 50 MCG TABLET PO SCH (05:22)
[2019-03-04 06:10] VITALS: BP 112/64
[2019-03-04 08:06] LABS: BASO # 0.1 x10^3/uL (0.0-0.2); BASO % 1 % (0-3); EOS # 0.4 x10^3/uL (0.0-0.7); EOS % 5 % (0-3); HEMATOCRIT 45.1 % (39.0-53.0); HEMOGLOBIN 14.6 g/dL (13.0-17.5); LYMPH # 1.2 x10^3/uL (1.0-4.8); LYMPH % 18 % (24-48); MEAN CORPUSCULAR HEMOGLOBIN 30 pg (25-35); MEAN CORPUSCULAR HGB CONC 32 g/dL (31-37); MEAN CORPUSCULAR VOLUME 92 fL (79-100); MONO # 0.9 x10^3/uL (0.0-1.1); MONO % 13 % (0-9); NEUT # 4.3 x10^3uL (1.8-7.7); NEUT % 63 % (31-73); PLATELET COUNT 248 x10^3/uL (140-400); RED BLOOD COUNT 4.93 x10^6/uL (4.30-5.70); RED CELL DISTRIBUTION WIDTH 17.7 % (11.5-14.5); WHITE BLOOD COUNT 6.8 x10^3/uL (4.0-11.0)
[2019-03-04] MEDS: OLANZapine 5 MG TABLET PO SCH (08:17)
[2019-03-04] MEDS: DIVALPROEX 125 MG CAP.SPRINK PO SCH ×2 (08:17→21:39)
[2019-03-04] MEDS: LACTOBACILLUS RHAMNOSUS GG 1 CAPSULE. PO SCH ×2 (08:18→21:38)
[2019-03-04] MEDS: SERTRALINE 50 MG TABLET. PO SCH (08:18)
[2019-03-04] MEDS: AMOXICILLIN 250 MG CAPSULE PO SCH ×3 (08:18→21:39)
[2019-03-04] MEDS: NYSTATIN TOPICAL POWDER 15GM BOTTLE. TP SCH ×2 (08:18→21:39)
[2019-03-04 08:21] LABS: ALBUMIN 2.6 g/dL (3.4-5.0); ALBUMIN/GLOBULIN RATIO 0.6 (1.0-1.7); CALCIUM 8.8 mg/dL (8.5-10.1); GFR 73.7; POTASSIUM 4.6 mmol/L (3.5-5.1); TOTAL BILIRUBIN 0.2 mg/dL (0.2-1.0)
--- NOTE | 2019-03-04 10:34 | NUR ---
WEEKLY ACTIVITY THERAPY NOTE Date of Admission: 02/01/2019 Date of AT Assessment: 02/05/2019 Goal aimed: to increase sensory stimulation Initial goal: Pt. will engage in one individual Activity Therapy session before discharge. Weekly progress towards goal: on track Group participation level: zero Weekly highlights: Behaviors observed: tearful and restless during 's day service, sleeping often, fidgeting often with random materials Plan: no change to goal Beneficial adaptations: supervision with sturdy sensory stimulation activities
--- NOTE | 2019-03-04 11:08 | NUR ---
Patient in his broda in the dining room for assessments and medications. Patient was restless with morning assessments, but cooperative after some redirection. Patient was compliant with medications crushed in one bite. Will continue to monitor and report to oncoming shift.
--- NOTE | 2019-03-04 13:46 | NUR ---
KATERINA contacted pt dtr, Mylene, to let her know that pt would be leaving on Friday. The facility could not do today and actually set up transport for tomorrow at 10:00. Mylene is very excited for this and hopes that it does not change again as she has not been able to see pt since his admission here. KATERINA encourged Myelne that if she needed anything else to please let SW know.
--- NOTE | 2019-03-04 13:53 | NUR ---
[facility] Social Work Discharge Planning Form Patient Name TRANG GARCIA Admit Date: 02/01/19 DISCHARGE PLAN Discharge Destination: Discharge back to [facility] Care Assessment: N/A Level II Assessment: N/A Transportation: [facility] to pick pt up around 10:00 AM Special Instructions/Notes: Please fax discharge orders over to pt facility fax listed below. DISCHARGE TO FACILITY Facility: [facility] Address: [address] [place] [address]; [place] [address] Contact Name: Reta DON: Contact Name: Please ask for the nurse receiving pt upon admission to give report. PCP: Dr. Nikita Urrutia
[2019-03-04 16:46] VITALS: BP 166/79
--- NOTE | 2019-03-04 20:42 | PDOC ---
Exam Note: Ramiro Note: Please also refer to the separate dictated note~for this date of service dictated separately.~Patient seen individually. Discussed the patient with Nursing staff reviewed the chart.~Reviewed interim history and current functioning. Reviewed vital signs,~Labs/ Radiology~and current medications noted below. Continue current treatment with the changes noted in the dictated addendum note Assessment: Vital Signs/I&O: Vital Signs Date Time Temp Pulse Resp B/P (MAP) Pulse Ox O2 Delivery O2 Flow Rate FiO2 03/04/19 17:03 Room Air 03/04/19 16:46 97.8 84 18 166/79 (108) 97 I & O 03/03/19 03/03/19 03/04/19 15:00 23:00 07:00 Intake Total 840 ml 600 ml 240 ml Balance 840 ml 600 ml 240 ml Labs: Laboratory Tests Test 03/04/19 07:50 White Blood Count 6.8 x10^3/uL (4.0-11.0) Red Blood Count 4.93 x10^6/uL (4.30-5.70) Hemoglobin 14.6 g/dL (13.0-17.5) Hematocrit 45.1 % (39.0-53.0) Mean Corpuscular Volume 92 fL (79-100) Mean Corpuscular Hemoglobin 30 pg (25-35) Mean Corpuscular Hemoglobin Concent 32 g/dL (31-37) Red Cell Distribution Width 17.7 % (11.5-14.5) H Platelet Count 248 x10^3/uL (140-400) Neutrophils (%) (Auto) 63 % (31-73) Lymphocytes (%) (Auto) 18 % (24-48) L Monocytes (%) (Auto) 13 % (0-9) H Eosinophils (%) (Auto) 5 % (0-3) H Basophils (%) (Auto) 1 % (0-3) Neutrophils # (Auto) 4.3 x10^3uL (1.8-7.7) Lymphocytes # (Auto) 1.2 x10^3/uL (1.0-4.8) Monocytes # (Auto) 0.9 x10^3/uL (0.0-1.1) Eosinophils # (Auto) 0.4 x10^3/uL (0.0-0.7) Basophils # (Auto) 0.1 x10^3/uL (0.0-0.2) Sodium Level 144 mmol/L (136-145) Potassium Level 4.6 mmol/L (3.5-5.1) Chloride Level 106 mmol/L (98-107) Carbon Dioxide Level 29 mmol/L (21-32) Anion Gap 9 (6-14) Blood Urea Nitrogen 32 mg/dL (8-26) H Creatinine 1.0 mg/dL (0.7-1.3) Estimated GFR (Cockcroft-Gault) 73.7 BUN/Creatinine Ratio 32 (6-20) H Glucose Level 91 mg/dL (70-99) Calcium Level 8.8 mg/dL (8.5-10.1) Total Bilirubin 0.2 mg/dL (0.2-1.0) Aspartate Amino Transferase (AST) 29 U/L (15-37) Alanine Aminotransferase (ALT) 33 U/L (16-63) Alkaline Phosphatase 66 U/L (46-116) Total Protein 7.0 g/dL (6.4-8.2) Albumin 2.6 g/dL (3.4-5.0) L Albumin/Globulin Ratio 0.6 (1.0-1.7) L Current Medications: I have reviewed the current psychotropics carefully including drug interactions. Risk benefit ratio favors no change other than as noted in my dictated progress note. Diagnosis: Problems: (1) Anxiety disorder (2) Impulse control disorder (3) Lewy body dementia with behavioral disturbance (4) Medical clearance for psychiatric admission (5) Alzheimer's dementia (6) Malnutrition PASCUAL RUELAS MD Mar 04, 2019 20:42
[2019-03-05] MEDS: LEVOTHYROXINE 50 MCG TABLET PO SCH (05:49)
[2019-03-05] MEDS: ALBUTEROL SULFATE 2.5 MG/3 ML NEBU. NEB SCH (06:13)
[2019-03-05 06:41] VITALS: BP 128/64
[2019-03-05] MEDS: LACTOBACILLUS RHAMNOSUS GG 1 CAPSULE. PO SCH (08:42)
[2019-03-05] MEDS: AMOXICILLIN 250 MG CAPSULE PO SCH (08:42)
[2019-03-05] MEDS: SERTRALINE 50 MG TABLET. PO SCH (08:43)
[2019-03-05] MEDS: NYSTATIN TOPICAL POWDER 15GM BOTTLE. TP SCH (08:43)
[2019-03-05] MEDS: OLANZapine 5 MG TABLET PO SCH (08:43)
[2019-03-05] MEDS: DIVALPROEX 125 MG CAP.SPRINK PO SCH (08:43)
--- NOTE | 2019-03-05 09:45 | NUR ---
Patient was in the dining room during morning medication pass. Took medications crushed in pudding, allowed for morning assessment. No agitation noted at this time. Will continue to monitor.
--- NOTE | 2019-03-05 10:23 | NUR ---
Transition Record was faxed to follow-up provider with the following elements: Reason for admission, procedures, tests, principal diagnosis, pending studies, patient instructions, 11/11 contact information for unit, phone number to obtain pending test results, plan for follow-up care, physician follow-up, advanced directive information, and medication list with dose, duration and instructions. This information was included in the following documents: History and physical, lab results, study results, progress notes, social work planning form, DC instruction form, patient visit summary, and medication reconciliation form. Date & time record faxed: 03/04/19, 0148 Record faxed to: Shanelle Bear @[phone] Record discussed with/ report given to: Jo Ann
--- NOTE | 2019-03-05 12:51 | PN ---
DATE: 03/03/2019 PSYCHIATRIC PROGRESS NOTE This late entry 03/03/2019 covers elements not covered in my initial note. SUBJECTIVE: I met with the patient evening of 03/03/2019. The patient slept 7-3/4 hours previous night. Per Donald RN, the patient was irritable with cares previous night and during the day, but redirects walking from meals with assistance, sat in one of the heavy chairs in the day room, not having to be in a Broda chair. REVIEW OF SYSTEMS: No CV, , Pulmonary, eye, ENT system symptoms on review. Reliability poor. MENTAL STATUS EXAM: Oriented to himself. Insight, judgment, recent and remote memory, attention, concentration, fund of knowledge poor, consistent with his diagnosis mentioned in my initial note. PLAN: No change from initial note. MAN Subhash RUELAS MD DR: ENID/kelby JOB#: [id number] / [id number]
--- NOTE | 2019-03-05 19:42 | PN ---
DATE: 03/04/2019 PSYCHIATRIC PROGRESS NOTE This late entry of 03/04/2019 covers the elements not covered in my initial note. SUBJECTIVE: I met with the patient in the evening of 03/04/2019 and staffed at a treatment team meeting with the entire team in the morning. Overall, the patient remains confused, somewhat withdrawn, but ambulating better. REVIEW OF SYSTEMS: No CV, , pulmonary, eye, ENT system symptoms on review. Reliability poor. MENTAL STATUS EXAM: Oriented to himself. Insight, judgment, recent and remote memory, attention, concentration, fund of knowledge poor, consistent with his diagnosis mentioned in my initial note. PLAN: No change from initial note. MAN Subhash RUELAS MD DR: ENID/kelby JOB#: [id number] / [id number]
--- NOTE | 2019-03-05 20:40 | PDOC ---
Exam Note: Ramiro Note: Please also refer to the separate dictated note~for this date of service dictated separately.~Patient seen individually. Discussed the patient with Nursing staff reviewed the chart.~Reviewed interim history and current functioning. Reviewed vital signs,~Labs/ Radiology~and current medications noted below. Continue current treatment with the changes noted in the dictated addendum note Assessment: Vital Signs/I&O: Vital Signs Date Time Temp Pulse Resp B/P (MAP) Pulse Ox O2 Delivery O2 Flow Rate FiO2 03/05/19 06:41 97.5 58 20 128/64 (85) 95 03/05/19 04:40 Room Air I & O 03/04/19 03/04/19 03/05/19 15:00 23:00 07:00 Intake Total 1920 ml 720 ml 240 ml Balance 1920 ml 720 ml 240 ml Current Medications: I have reviewed the current psychotropics carefully including drug interactions. Risk benefit ratio favors no change other than as noted in my dictated progress note. Diagnosis: Problems: (1) Anxiety disorder (2) Impulse control disorder (3) Lewy body dementia with behavioral disturbance (4) Alzheimer's dementia (5) Malnutrition PASCUAL RUELAS MD Mar 05, 2019 20:40
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
== END 2019-03-05 10:05 | DRG 57 ==
LOC: ER 15:34 → GEROPSY 18:08
PROVIDERS: ADMIT Psychiatry & Neurology Psychiatry; ATTEND Psychiatry & Neurology Psychiatry
DX: G30.9 Alzheimer's disease, unspecified (principal); N39.0 Urinary tract infection, site not specified; F01.51 Vascular dementia, unspecified severity, with behavioral disturbance; F02.81 Dementia in other diseases classified elsewhere, unspecified severity, with behavioral disturbance; E44.0 Moderate protein-calorie malnutrition; F41.1 Generalized anxiety disorder; F63.9 Impulse disorder, unspecified; E55.9 Vitamin D deficiency, unspecified; E86.0 Dehydration; E03.9 Hypothyroidism, unspecified; E78.5 Hyperlipidemia, unspecified; G31.83 Neurocognitive disorder with Lewy bodies; G89.4 Chronic pain syndrome; J44.9 Chronic obstructive pulmonary disease, unspecified; M46.90 Unspecified inflammatory spondylopathy, site unspecified; R29.6 Repeated falls; Z79.899 Other long term (current) drug therapy; Z91.81 History of falling; Z68.28 Body mass index [BMI] 28.0-28.9, adult; Z88.8 Allergy status to other drugs, medicaments and biological substances
CPT/HCPCS: 36415; 70450; 80053; 80061; 80164; 80329; 81001; 82306; 82553; 83036; 83540; 83550; 83735; 84436; 84439; 84443; 84480; 84484; 85025; 85610; 85730; 86592; 87086; 87186; 90471; 90686; 93005; 94640; 94760; G0480; J7613; J7626; 82003; 99285-25